=== PATIENT | male | born 1940 | race Caucasian/White ===

== ENCOUNTER 2017-08-12 12:43 | Emergency (ER) | payer MEDICARE, BC ==
--- NOTE | 2017-08-12 13:02 | EDM.PDOC ---
ED HPI GENERAL MEDICAL PROBLEM - General Chief Complaint: Abdominal Pain Stated Complaint: ABDOMINAL PAIN Time Seen by Provider: 08/12/17 12:51 Source of Information: Reports: Patient History Limitations: Reports: No Limitations - History of Present Illness INITIAL COMMENTS - FREE TEXT/NARRATIVE: History of present illness: []Patient had left-sided abdominal pain the day after Thanksgiving which he attributes to a spring breaking and as mattress. He denies any fevers, chills, nausea, vomiting diarrhea cough or chest pain. Review of systems: As per history of present illness and below otherwise all systems reviewed and negative. Past medical history: As per history of present illness and as reviewed below otherwise noncontributory. Surgical history: As per history of present illness and as reviewed below otherwise noncontributory. Social history: No reported history of drug or alcohol abuse. Family history: As per history of present illness and as reviewed below otherwise noncontributory. Physical exam: General: Well developed, well nourished in NAD HEENT: Atraumatic, normocephalic, pupils reactive, negative for conjunctival pallor or scleral icterus, mucous membranes moist, throat clear, neck supple, nontender, trachea midline. Lungs: Clear to auscultation, breath sounds equal bilaterally, chest nontender. Heart: S1S2, regular, negative for clicks, rubs, or JVD. Abdomen: Soft, nondistended, tender in the left upper quadrant along a dermatome that has erythematous rash with blisters. Negative for masses or hepatosplenomegaly. Negative for costovertebral tenderness. Pelvis: Stable nontender. Genitourinary: Deferred. Rectal: Deferred. Extremities: Atraumatic, negative for cords or calf pain. Neurovascular unremarkable. Neuro: Awake, alert, oriented. Cranial nerves II through XII unremarkable. Cerebellum unremarkable. Motor and sensory unremarkable throughout. Exam nonfocal. Skin: Large rash along his left trunk along a dermatome with erythema and blistering appearing as shingles. Diagnostics: [] Therapeutics: [] Impression: []Shingles Plan: []Acyclovir tramadol for pain follow-up primary care doctor Definitive disposition and diagnosis as appropriate pending reevaluation and review of above. - Related Data Allergies Allergy/AdvReac Type Severity Reaction Status Date / Time celecoxib [From Celebrex] Allergy Cannot Verified 08/01/14 15:08 Remember oxytetracycline Allergy Diarrhea Verified 06/03/15 12:39 [From Terramycin] oxytetracycline HCl Allergy Diarrhea Verified 06/03/15 12:39 [From Terramycin] sulfamethoxazole Allergy Headache Verified 06/03/15 12:39 [From Bactrim] trimethoprim [From Bactrim] Allergy Headache Verified 06/03/15 12:39 Home Meds: Home Meds Aspirin [Halfprin] 81 mg PO DAILY 06/03/15 [History] Clopidogrel Bisulfate [Clopidogrel] 75 mg PO DAILY 06/03/15 [History] Exenatide [Byetta] 10 mcg SUBCUT BID 06/03/15 [History] Glimepiride 4 mg PO BID 06/03/15 [History] Isosorbide Dinitrate 30 mg PO DAILY 06/03/15 [History] Losartan Potassium 100 mg PO DAILY 06/03/15 [History] Metoprolol Succinate [Toprol XL] 25 mg PO BID 06/03/15 [History] Nitroglycerin 1 spray SL ASDIRECTED PRN 06/03/15 [History] Omeprazole Magnesium [Prilosec Otc] 20 mg PO DAILY 06/03/15 [History] Promethazine HCl 25 mg PO Q3HR PRN 06/03/15 [History] Rosuvastatin [Crestor] 20 mg PO BTNUNITS 06/03/15 [History] amLODIPine [Norvasc] 5 mg PO DAILY 06/03/15 [History] metFORMIN HCl [Metformin HCl] 1,000 mg PO BID 06/03/15 [History] rOPINIRole [Requip] 1 mg PO BEDTIME PRN 06/03/15 [History] Acyclovir 800 mg PO 5XDAY #50 tablet 08/12/17 [Rx] traMADol HCl [Tramadol HCl] 50 mg PO Q6H PRN #30 tablet 08/12/17 [Rx] Past Medical History - Past Surgical History Other Male Surgeries/Procedures: vasectomy Social & Family History - Tobacco Use Smoking Status *Q: Former Smoker - Alcohol Use Days Per Week of Alcohol Use: 1 Number of Drinks Per Day: 1 Total Drinks Per Week: 1 - Recreational Drug Use Recreational Drug Use: No Drug Use in Last 12 Months: No ED ROS GENERAL - Review of Systems Review Of Systems: See Below (See history of present illness) ED EXAM, SKIN/RASH Exam: See Below (See history of present illness) Departure - Departure Time of Disposition: 13:07 Disposition: Home, Self-Care 01 Condition: Good Clinical Impression: Shingles outbreak Qualifiers: Herpes zoster complications: without complications Qualified Code(s): B02.9 - Zoster without complications - Discharge Information Prescriptions: Acyclovir 800 mg PO 5XDAY #50 tablet traMADol HCl [Tramadol HCl] 50 mg PO Q6H PRN #30 tablet PRN Reason: Pain Referrals: Anthony Miller DO [Primary Care Provider] - Forms: ED Department Discharge Additional Instructions: The following information is given to patients seen in the emergency department who are being discharged to home. This information is to outline your options for follow-up care. We provide all patients seen in our emergency department with a follow-up referral. The need for follow-up, as well as the timing and circumstances, are variable depending upon the specifics of your emergency department visit. If you don't have a primary care physician on staff, we will provide you with a referral. We always advise you to contact your personal physician following an emergency department visit to inform them of the circumstance of the visit and for follow-up with them and/or the need for any referrals to a consulting specialist. The emergency department will also refer you to a specialist when appropriate. This referral assures that you have the opportunity for follow-up care with a specialist. All of these measure are taken in an effort to provide you with optimal care, which includes your follow-up. Under all circumstances we always encourage you to contact your private physician who remains a resource for coordinating your care. When calling for follow-up care, please make the office aware that this follow-up is from your recent emergency room visit. If for any reason you are refused follow-up, please contact the [facility] Emergency Department at and asked to speak to the emergency department charge nurse. Take acyclovir 5 times a day for 10 days. Drink plenty of water. Tramadol for pain follow-up with your primary care doctor return if symptoms worsen or change [facility] Primary [facility] [place] [id number]
[2017-08-12 13:17] VITALS: BP 196/111
== END 2017-08-12 13:40 | disposition home or self-care (01) ==
LOC: MW.ED 12:43
DX: B02.9 Zoster without complications (principal); Z88.1 Allergy status to other antibiotic agents; Z88.2 Allergy status to sulfonamides; Z79.82 Long term (current) use of aspirin; Z79.899 Other long term (current) drug therapy; Z79.84 Long term (current) use of oral hypoglycemic drugs; Z87.891 Personal history of nicotine dependence
CPT/HCPCS: 99282

== ENCOUNTER 2017-08-13 11:12 | Observation (INO) | payer MEDICARE, BC ==
[2017-08-13] MEDS ORDERED: Sodium Chloride 0.9% 500 ML IV ONE (11:17)
[2017-08-13] MEDS ORDERED: Sodium Chloride 0.9% 2.5 ML Syringe FLUSH PRN (11:17)
[2017-08-13] MEDS ORDERED: Sodium Chloride 0.9% 10 ML Syringe FLUSH PRN (11:17)
[2017-08-13] MEDS ORDERED: Nitroglycerin 0.4 MG Tab.SL SL PRN (11:20)
[2017-08-13] MEDS ORDERED: Ondansetron 4 MG/2 ML SDV IVPUSH ONE (11:20)
[2017-08-13] MEDS ORDERED: Morphine 2 MG/ML Syringe IVPUSH ONE (11:20)
--- NOTE | 2017-08-13 11:21 | EDM.PDOC ---
ED HPI GENERAL MEDICAL PROBLEM - General Stated Complaint: SOB Time Seen by Provider: 08/13/17 11:15 Source of Information: Reports: Patient History Limitations: Reports: No Limitations - History of Present Illness INITIAL COMMENTS - FREE TEXT/NARRATIVE: History of present illness: []Patient was seen yesterday and diagnosed with shingles returns today with shortness of breath. Review of systems: As per history of present illness and below otherwise all systems reviewed and negative. Past medical history: As per history of present illness and as reviewed below otherwise noncontributory. Surgical history: As per history of present illness and as reviewed below otherwise noncontributory. Social history: No reported history of drug or alcohol abuse. Family history: As per history of present illness and as reviewed below otherwise noncontributory. Physical exam: General: Well developed, well nourished in NAD HEENT: Atraumatic, normocephalic, pupils reactive, negative for conjunctival pallor or scleral icterus, mucous membranes moist, throat clear, neck supple, nontender, trachea midline. Lungs: Clear to auscultation, breath sounds equal bilaterally, chest nontender. Heart: S1S2, regular, negative for clicks, rubs, or JVD. Abdomen: Soft, nondistended, nontender. Negative for masses or hepatosplenomegaly. Negative for costovertebral tenderness. Pelvis: Stable nontender. Genitourinary: Deferred. Rectal: Deferred. Extremities: Atraumatic, negative for cords or calf pain. Neurovascular unremarkable. Neuro: Awake, alert, oriented. Cranial nerves II through XII unremarkable. Cerebellum unremarkable. Motor and sensory unremarkable throughout. Exam nonfocal. Diagnostics: []Labs x-ray done Therapeutics: []Antihypertensive medications Impression: []Hypertensive urgency Plan: []Admit for blood pressure control, pain control and further treatment of acute shingles Definitive disposition and diagnosis as appropriate pending reevaluation and review of above. Left Chest Pain Score (Numeric/FACES): 4 - Related Data Allergies Allergy/AdvReac Type Severity Reaction Status Date / Time celecoxib [From Celebrex] Allergy Cannot Verified 08/13/17 11:22 Remember oxytetracycline Allergy Diarrhea Verified 08/13/17 11:22 [From Terramycin] oxytetracycline HCl Allergy Diarrhea Verified 08/13/17 11:22 [From Terramycin] sulfamethoxazole Allergy Headache Verified 08/13/17 11:22 [From Bactrim] trimethoprim [From Bactrim] Allergy Headache Verified 08/13/17 11:22 Home Meds: Home Meds Aspirin [Halfprin] 81 mg PO DAILY 06/03/15 [History] Clopidogrel Bisulfate [Clopidogrel] 75 mg PO DAILY 06/03/15 [History] Exenatide [Byetta] 10 mcg SUBCUT BID 06/03/15 [History] Glimepiride 4 mg PO BID 06/03/15 [History] Isosorbide Dinitrate 30 mg PO DAILY 06/03/15 [History] Losartan Potassium 100 mg PO DAILY 06/03/15 [History] Metoprolol Succinate [Toprol XL] 25 mg PO BID 06/03/15 [History] Nitroglycerin 1 spray SL ASDIRECTED PRN 06/03/15 [History] Omeprazole Magnesium [Prilosec Otc] 20 mg PO DAILY 06/03/15 [History] Promethazine HCl 25 mg PO Q3HR PRN 06/03/15 [History] Rosuvastatin [Crestor] 20 mg PO BTNUNITS 06/03/15 [History] amLODIPine [Norvasc] 5 mg PO DAILY 06/03/15 [History] metFORMIN HCl [Metformin HCl] 1,000 mg PO BID 06/03/15 [History] rOPINIRole [Requip] 1 mg PO BEDTIME PRN 06/03/15 [History] Acyclovir 800 mg PO 5XDAY #50 tablet 08/12/17 [Rx] traMADol HCl [Tramadol HCl] 50 mg PO Q6H PRN #30 tablet 08/12/17 [Rx] Past Medical History HEENT History: Reports: Hard of Hearing Cardiovascular History: Reports: High Cholesterol, Hypertension, Stents, Other ( See Below) Other Cardiovascular History: carotid surgery Respiratory History: Reports: Asthma Gastrointestinal History: Reports: Colon Polyp Musculoskeletal History: Reports: Arthritis Endocrine/Metabolic History: Reports: Diabetes, Type II - Infectious Disease History Infectious Disease History: Reports: Chicken Pox - Past Surgical History Cardiovascular Surgical History: Reports: Carotid Endarterectomy GI Surgical History: Reports: Colonoscopy Other Male Surgeries/Procedures: vasectomy Social & Family History - Family History Endocrine/Metabolic: Reports: Diabetes, type II Other Dermatologic [facility] - Tobacco Use Smoking Status *Q: Light Tobacco Smoker Years of Tobacco use: 10 Packs/Tins Daily: 1 Used Tobacco, but Quit: Yes Month Tobacco Last Used: 1969 Second Hand Smoke Exposure: No - Caffeine Use Caffeine Use: Reports: Coffee - Alcohol Use Days Per Week of Alcohol Use: 1 Number of Drinks Per Day: 1 Total Drinks Per Week: 1 - Recreational Drug Use Recreational Drug Use: No Drug Use in Last 12 Months: No ED ROS GENERAL - Review of Systems Review Of Systems: See Below (See history of present illness) ED EXAM, GENERAL - Physical Exam Exam: See Below (See history of present illness) Course - Vital Signs Last Recorded V/S: Last Vital Signs Temp 97.8 F 08/13/17 14:30 Pulse 72 08/13/17 14:30 Resp 18 08/13/17 14:30 BP 182/97 H 08/13/17 14:47 Pulse Ox 94 L 08/13/17 14:30 - Orders/Labs/Meds Orders: Active Orders 24 hr Category Date Time Status Admission Status [Patient Status] [ADT] Stat ADT 08/13/17 13:01 Active EKG Documentation Completion [RC] STAT Care 08/13/17 11:17 Active Chest 1V Frontal [CR] Stat Exams 08/13/17 11:18 Taken Nitroglycerin [Nitrostat] Med 08/13/17 11:20 Active 0.4 mg SL Q5M PRN Sodium Chloride 0.9% [Saline Flush] Med 08/13/17 11:17 Active 10 ml FLUSH ASDIRECTED PRN Sodium Chloride 0.9% [Saline Flush] Med 08/13/17 11:17 Active 2.5 ml FLUSH ASDIRECTED PRN Saline Lock Insert [OM.PC] Stat Oth 08/13/17 11:17 Ordered Medication Orders Acetaminophen (Tylenol) 650 mg PO Q4H PRN PRN Reason: Pain (Mild 1-3)/fever Docusate Sodium (Colace) 100 mg PO BID PRN PRN Reason: Constipation Last Admin: 08/13/17 14:48 Dose: 100 mg Heparin Sodium (Porcine) (Heparin Sodium) 5,000 units SUBCUT Q8H ANAY Last Admin: 08/13/17 14:47 Dose: 5,000 units Insulin Aspart (Novolog) 0 unit SUBCUT ACBREAKFASTANDBED ANAY PRN Reason: Protocol Morphine Sulfate (Morphine) 2 mg IVPUSH Q2H PRN PRN Reason: Pain (severe 7-10) Stop: 08/14/17 13:32 Nitroglycerin (Nitrostat) 0.4 mg SL Q5M PRN PRN Reason: Chest Pain Ondansetron HCl (Zofran Odt) 4 mg PO Q4H PRN PRN Reason: nausea, able to take PO Polyethylene Glycol (Miralax) 17 gm PO DAILY PRN PRN Reason: Constipation Sodium Chloride (Saline Flush) 10 ml FLUSH ASDIRECTED PRN PRN Reason: Keep Vein Open Sodium Chloride (Saline Flush) 2.5 ml FLUSH ASDIRECTED PRN PRN Reason: Keep Vein Open Tramadol HCl (Ultram) 50 mg PO Q4H PRN PRN Reason: Pain Valacyclovir HCl (Valtrex) 1,000 mg PO TID [facility] Last Admin: 08/13/17 14:46 Dose: 1,000 mg Labs: Laboratory Tests 08/13/17 08/13/17 Range/Units 11:33 11:33 WBC 8.69 (4.0-11.0) K/uL RBC 4.84 (4.50-5.90) M/uL Hgb 15.1 (13.0-17.0) g/dL Hct 42.1 (38.0-50.0) % MCV 87.0 (80.0-98.0) fL MCH 31.2 (27.0-32.0) pg MCHC 35.9 (31.0-37.0) g/dL RDW Std Deviation 41.2 (28.0-62.0) fl RDW Coeff of [place] 13 (11.0-15.0) % Plt Count 186 (150-400) K/uL MPV 10.70 (7.40-12.00) fL Neut % (Auto) 77.9 (48.0-80.0) % Lymph % (Auto) 11.0 L (16.0-40.0) % [place] % (Auto) 10.0 (0.0-15.0) % Eos % (Auto) 0.6 (0.0-7.0) % Baso % (Auto) 0.5 (0.0-1.5) % Neut # (Auto) 6.8 H (1.4-5.7) K/uL Lymph # (Auto) 1.0 (0.6-2.4) K/uL [place] # (Auto) 0.9 H (0.0-0.8) K/uL Eos # (Auto) 0.1 (0.0-0.7) K/uL Baso # (Auto) 0.0 (0.0-0.1) K/uL Nucleated RBC % 0.0 /100WBC Nucleated RBCs # 0 K/uL Sodium 137 (136-146) mmol/L Potassium 4.3 (3.5-5.1) mmol/L Chloride 104 (98-110) mmol/L Carbon Dioxide 23 (21-31) mmol/L BUN 18 (6.0-23.0) mg/dL Creatinine 1.0 (0.6-1.5) mg/dL Est Cr Clr Drug Dosing 56.00 mL/min Estimated GFR (MDRD) > 60.0 ml/min Glucose 168 H (60-110) mg/dL Calcium 9.4 (8.8-10.8) mg/dL Total Bilirubin 0.8 (0.1-1.5) mg/dL AST 17 (5-40) IU/L ALT 13 (8-54) IU/L Alkaline Phosphatase < 7 L (40-150) Troponin I < 0.10 (0.0-0.29) NG/ML Total Protein 7.1 (6.0-8.0) g/dL Albumin 3.7 (3.4-4.8) g/dL Globulin 3.4 (2.0-3.5) g/dL Albumin/Globulin Ratio 1.1 L (1.3-2.8) Meds: Medications Generic Name Dose Route Start Last Admin Trade Name Freq PRN Reason Stop Dose Admin Acetaminophen 650 mg 08/13/17 13:29 Tylenol PO Q4H PRN Pain (Mild 1-3)/fever Docusate Sodium 100 mg 08/13/17 13:29 08/13/17 14:48 Colace PO 100 mg BID PRN Administration Constipation Heparin Sodium (Porcine) 5,000 units 08/13/17 13:30 08/13/17 14:47 Heparin Sodium SUBCUT 5,000 units Q8H ANAY Administration Insulin Aspart 0 unit 08/13/17 21:00 Novolog SUBCUT ACBREAKFASTANDBED [facility] Protocol Morphine Sulfate 2 mg 08/13/17 13:29 Morphine IVPUSH 08/14/17 13:32 Q2H PRN Pain (severe 7-10) Nitroglycerin 0.4 mg 08/13/17 11:20 Nitrostat SL Q5M PRN Chest Pain Ondansetron HCl 4 mg 08/13/17 13:29 Zofran Odt PO Q4H PRN nausea, able to take PO Polyethylene Glycol 17 gm 08/13/17 13:29 Miralax PO DAILY PRN Constipation Sodium Chloride 10 ml 08/13/17 11:17 Saline Flush FLUSH ASDIRECTED PRN Keep Vein Open Sodium Chloride 2.5 ml 08/13/17 11:17 Saline Flush FLUSH ASDIRECTED PRN Keep Vein Open Tramadol HCl 50 mg 08/13/17 13:29 Ultram PO Q4H PRN Pain Valacyclovir HCl 1,000 mg 08/13/17 14:00 08/13/17 14:46 Valtrex PO 1,000 mg TID [facility] Administration Discontinued Medications Generic Name Dose Route Start Last Admin Trade Name Freq PRN Reason Stop Dose Admin Captopril 25 mg 08/13/17 13:29 08/13/17 14:47 Capoten PO 08/13/17 13:30 25 mg ONETIME ONE Administration Sodium Chloride 500 mls @ 999 mls/hr 08/13/17 11:17 08/13/17 11:39 Normal Saline IV 08/13/17 11:47 999 mls/hr .Bolus ONE Administration Labetalol HCl 20 mg 08/13/17 12:08 08/13/17 12:20 Normodyne IVPUSH 08/13/17 12:09 20 mg .BOLUS ONE Administration Protocol Labetalol HCl 20 mg 08/13/17 12:15 08/13/17 12:23 Normodyne IVPUSH 08/13/17 12:16 Not Given .BOLUS ONE Protocol Metoprolol Tartrate 5 mg 08/13/17 11:30 08/13/17 14:32 Lopressor IVPUSH 08/13/17 11:41 Not Given Q5M [facility] Morphine Sulfate 2 mg 08/13/17 11:20 08/13/17 11:40 Morphine IVPUSH 08/13/17 11:21 Not Given ONETIME ONE Ondansetron HCl 4 mg 08/13/17 11:20 08/13/17 11:40 Zofran IVPUSH 08/13/17 11:21 Not Given ONETIME ONE Departure - Departure Time of Disposition: 15:00 Disposition: Admitted As Inpatient 64 Condition: Good, Fair Clinical Impression: Hypertensive urgency - My Orders Last 24 Hours: My Active Orders 08/13/17 11:17 EKG Documentation Completion [RC] STAT Sodium Chloride 0.9% [Saline Flush] 10 ml FLUSH ASDIRECTED PRN Sodium Chloride 0.9% [Saline Flush] 2.5 ml FLUSH ASDIRECTED PRN Saline Lock Insert [OM.PC] Stat 08/13/17 11:18 Chest 1V Frontal [CR] Stat 08/13/17 11:20 Nitroglycerin [Nitrostat] 0.4 mg SL Q5M PRN 08/13/17 13:01 Admission Status [Patient Status] [ADT] Stat - Assessment/Plan Last 24 Hours: My Active Orders 08/13/17 11:17 EKG Documentation Completion [RC] STAT Sodium Chloride 0.9% [Saline Flush] 10 ml FLUSH ASDIRECTED PRN Sodium Chloride 0.9% [Saline Flush] 2.5 ml FLUSH ASDIRECTED PRN Saline Lock Insert [OM.PC] Stat 08/13/17 11:18 Chest 1V Frontal [CR] Stat 08/13/17 11:20 Nitroglycerin [Nitrostat] 0.4 mg SL Q5M PRN 08/13/17 13:01 Admission Status [Patient Status] [ADT] Stat
[2017-08-13] MEDS: Metoprolol Tartrate 5 MG/5 ML SDV IVPUSH SCH ×3 (11:40→14:32)
[2017-08-13 12:04] LABS: CHLORIDE,CL 104 mmol/L (98-110); SODIUM,NA 137 mmol/L (136-146)
[2017-08-13] MEDS ORDERED: Labetalol 5 MG/ML 5 ML Syringe IVPUSH ONE (12:08)
[2017-08-13] MEDS ORDERED: Labetalol 100 MG/20 ML MDV IVPUSH ONE (12:15)
--- NOTE | 2017-08-13 13:16 | PCM.HP ---
H&P History of Present Illness - General Date of Service: 08/13/17 Admit Problem/Dx: Admission Diagnosis/Problem Admission Diagnosis/Problem Hypertensive urgency Source of Information: Patient History Limitations: Reports: No Limitations - History of Present Illness Initial Comments - Free Text/Narative: 77 yo presenting to ED with chief complaint of left side and back pain found to have herpes zoster with pmh of CAD, type 2 diabetes, hypertension, and restless leg syndrome. Patient initially presented in the emergency room on 08/12/17. He was treated for herpes zoster and sent home. Patient return to emergency room today, complaining of uncontrolled pain and some shortness of breath. He has a history of coronary artery disease, hypertension, type 2 diabetes, and restless leg syndrome. Initial zoster symptoms started approximately 1 week ago. He felt left-sided pain that he initially thought was due to old rib fractures or "[place] in his bed" that may be poking him. Today he had some shortness of breath after getting out of the shower. He denies any associated chest pain, palpitations, hemoptysis, leg pain or swelling. He does have a history of asthma but states that he does not have any oral medications for this. In the past he did use a borrowed nebulizer. He currently denies any chest pain, palpitations, syncopal episodes, or focal neurologic deficits. In the emergency room CBC, CMP, and chest x-ray were unremarkable. Blood pressure was markedly elevated at 174/113. O2 sat 93% on room air. Patient was admitted for hypertensive urgency and pain control. Onset of Symptoms: Reports: Gradual Left Chest Pain Score (Numeric/FACES): 4 - Related Data Allergies/Adverse Reactions: Allergies Allergy/AdvReac Type Severity Reaction Status Date / Time celecoxib [From Celebrex] Allergy Cannot Verified 08/13/17 11:22 Remember oxytetracycline Allergy Diarrhea Verified 08/13/17 11:22 [From Terramycin] oxytetracycline HCl Allergy Diarrhea Verified 08/13/17 11:22 [From Terramycin] sulfamethoxazole Allergy Headache Verified 08/13/17 11:22 [From Bactrim] trimethoprim [From Bactrim] Allergy Headache Verified 08/13/17 11:22 Home Medications: Home Meds Aspirin [Halfprin] 81 mg PO DAILY 06/03/15 [History] Clopidogrel Bisulfate [Clopidogrel] 75 mg PO DAILY 06/03/15 [History] Exenatide [Byetta] 10 mcg SUBCUT BID 06/03/15 [History] Glimepiride 4 mg PO BID 06/03/15 [History] Isosorbide Dinitrate 30 mg PO DAILY 06/03/15 [History] Losartan Potassium 100 mg PO DAILY 06/03/15 [History] Metoprolol Succinate [Toprol XL] 25 mg PO BID 06/03/15 [History] Nitroglycerin 1 spray SL ASDIRECTED PRN 06/03/15 [History] Omeprazole Magnesium [Prilosec Otc] 20 mg PO DAILY 06/03/15 [History] Promethazine HCl 25 mg PO Q3HR PRN 06/03/15 [History] Rosuvastatin [Crestor] 20 mg PO BTNUNITS 06/03/15 [History] amLODIPine [Norvasc] 5 mg PO DAILY 06/03/15 [History] metFORMIN HCl [Metformin HCl] 1,000 mg PO BID 06/03/15 [History] rOPINIRole [Requip] 1 mg PO BEDTIME PRN 06/03/15 [History] Acyclovir 800 mg PO 5XDAY #50 tablet 08/12/17 [Rx] traMADol HCl [Tramadol HCl] 50 mg PO Q6H PRN #30 tablet 08/12/17 [Rx] Past Medical History HEENT History: Reports: Hard of Hearing Cardiovascular History: Reports: High Cholesterol, Hypertension, Stents, Other ( See Below) Other Cardiovascular History: carotid surgery Respiratory History: Reports: Asthma Gastrointestinal History: Reports: Colon Polyp Musculoskeletal History: Reports: Arthritis Endocrine/Metabolic History: Reports: Diabetes, Type II - Infectious Disease History Infectious Disease History: Reports: Chicken Pox - Past Surgical History Cardiovascular Surgical History: Reports: Carotid Endarterectomy GI Surgical History: Reports: Colonoscopy Other Male Surgeries/Procedures: vasectomy Social & Family History - Family History Family Medical History: Noncontributory Endocrine/Metabolic: Reports: Diabetes, type II Other Dermatologic Family History: states niecehadshingles - Tobacco Use Smoking Status *Q: Light Tobacco Smoker Years of Tobacco use: 10 Packs/Tins Daily: 1 Used Tobacco, but Quit: Yes Month Tobacco Last Used: 1969 Second Hand Smoke Exposure: No - Caffeine Use Caffeine Use: Reports: Coffee - Alcohol Use Days Per Week of Alcohol Use: 1 Number of Drinks Per Day: 1 Total Drinks Per Week: 1 - Recreational Drug Use Recreational Drug Use: No Drug Use in Last 12 Months: No H&P Review of Systems - Review of Systems: Review Of Systems: See Below General: Denies: Fever, Chills, Malaise, Weakness, Fatigue, Night Sweats HEENT: Denies: Dysphasia, Sinus Congestion, Sore Throat Pulmonary: Reports: Shortness of Breath. Denies: Wheezing, Pleuritic Chest Pain , Cough, Sputum, Hemoptysis Cardiovascular: Reports: Edema. Denies: Chest Pain, Palpitations, Syncope Gastrointestinal: Denies: Abdominal Pain, Black Stool, Bloody Stool, Diarrhea, Flatus, Nausea, Vomiting Genitourinary: Denies: Dysuria Musculoskeletal: Reports: Other (back and left sided chest pain from zoster). Denies: Neck Pain, Leg Pain Skin: Reports: Rash, Erythema (zoster) Exam - Exam Exam: See Below - Vital Signs Vital Signs: Last Vital Signs Temp 97.0 F 08/13/17 11:19 Pulse 67 08/13/17 12:20 Resp 12 08/13/17 11:46 BP 174/113 H 08/13/17 12:20 Pulse Ox 96 08/13/17 11:46 Weight: 97.9 kg - Exam Quality Assessment: Supplemental Oxygen, DVT Prophylaxis General: Alert, Oriented, Cooperative HEENT: Conjunctiva Clear, EACs Clear, EOMI, Hearing Intact, Mucosa Moist & [place] , Nares Patent, Normal Nasal Septum, Posterior Pharynx Clear, PERRLA Neck: Supple, Trachea Midline, 2 Lungs: Clear to Auscultation, Normal Respiratory Effort Cardiovascular: Regular Rate, Regular Rhythm, Normal S1, Normal S2, Systolic Murmur GI/Abdominal Exam: Normal Bowel Sounds, Soft, Non-Tender, No Organomegaly, No Distention Back Exam: Normal Inspection Extremities: Normal Inspection, Non-Tender, Normal Capillary Refill, Pedal Edema Peripheral Pulses: 2+: Radial (L), Radial (R), Posterior Tibial (L), Posterior Tibial (R), Dorsalis Pedis (L), Dorsalis Pedis (R) Skin: Rash (Vesicular rash with surrounding erythema extending on left side below ribs from center of chest to mid back. ) Neurological: Cranial Nerves Intact Neuro Extensive - Mental Status: Alert, Oriented x3, Normal Mood/Affect, Normal Cognition Neuro Extensive - Motor, Sensory, Reflexes: CN II-XII Intact Psychiatric: Alert, Normal Affect, Normal Mood - Patient Data Lab Results Last 24 hrs: Laboratory Results - last 24 hr 08/13/17 08/13/17 Range/Units 11:33 11:33 WBC 8.69 (4.0-11.0) K/uL RBC 4.84 (4.50-5.90) M/uL Hgb 15.1 (13.0-17.0) g/dL Hct 42.1 (38.0-50.0) % MCV 87.0 (80.0-98.0) fL MCH 31.2 (27.0-32.0) pg MCHC 35.9 (31.0-37.0) g/dL RDW Std Deviation 41.2 (28.0-62.0) fl RDW Coeff of [place] 13 (11.0-15.0) % Plt Count 186 (150-400) K/uL MPV 10.70 (7.40-12.00) fL Neut % (Auto) 77.9 (48.0-80.0) % Lymph % (Auto) 11.0 L (16.0-40.0) % [place] % (Auto) 10.0 (0.0-15.0) % Eos % (Auto) 0.6 (0.0-7.0) % Baso % (Auto) 0.5 (0.0-1.5) % Neut # (Auto) 6.8 H (1.4-5.7) K/uL Lymph # (Auto) 1.0 (0.6-2.4) K/uL [place] # (Auto) 0.9 H (0.0-0.8) K/uL Eos # (Auto) 0.1 (0.0-0.7) K/uL Baso # (Auto) 0.0 (0.0-0.1) K/uL Nucleated RBC % 0.0 /100WBC Nucleated RBCs # 0 K/uL Sodium 137 (136-146) mmol/L Potassium 4.3 (3.5-5.1) mmol/L Chloride 104 (98-110) mmol/L Carbon Dioxide 23 (21-31) mmol/L BUN 18 (6.0-23.0) mg/dL Creatinine 1.0 (0.6-1.5) mg/dL Est Cr Clr Drug Dosing 56.00 mL/min Estimated GFR (MDRD) > 60.0 ml/min Glucose 168 H (60-110) mg/dL Calcium 9.4 (8.8-10.8) mg/dL Total Bilirubin 0.8 (0.1-1.5) mg/dL AST 17 (5-40) IU/L ALT 13 (8-54) IU/L Alkaline Phosphatase < 7 L (40-150) Troponin I < 0.10 (0.0-0.29) NG/ML Total Protein 7.1 (6.0-8.0) g/dL Albumin 3.7 (3.4-4.8) g/dL Globulin 3.4 (2.0-3.5) g/dL Albumin/Globulin Ratio 1.1 L (1.3-2.8) Result Diagrams: 08/13/17 11:33 08/13/17 11:33 *Q Meaningful Use (ADM) - VTE *Q VTE Criteria *Q: - Stroke *Q Stroke Criteria *Q: - AMI *Q AMI Criteria *Q: - Problem List (1) Asymptomatic hypertensive urgency SNOMED Code(s): 618946067 ICD Code: I16.0 - HYPERTENSIVE URGENCY Status: Acute Priority: High Current Visit: Yes (2) Herpes zoster dermatitis SNOMED Code(s): 790700889 ICD Code: B02.8 - ZOSTER WITH OTHER COMPLICATIONS; L30.8 - OTHER SPECIFIED DERMATITIS Status: Acute Priority: High Current Visit: Yes (3) Type 2 diabetes mellitus SNOMED Code(s): 44577130 ICD Code: E11.9 - TYPE 2 DIABETES MELLITUS WITHOUT COMPLICATIONS Status: Chronic Priority: Medium Current Visit: Yes Qualifiers: Diabetes mellitus complication status: without complication Diabetes mellitus usp insulin use: without intermodal dispatcher use Qualified Code(s): E11.9 - Type 2 diabetes mellitus without complications (4) Coronary artery disease SNOMED Code(s): 40274914 ICD Code: I25.10 - ATHSCL HEART DISEASE OF [place] CORONARY ARTERY W/O ANG PCTRS Status: Chronic Priority: Medium Current Visit: Yes Qualifiers: Coronary Disease-Associated Artery/Lesion type: unspecified vessel or lesion type [place] vs. transplanted heart: [place] heart Associated angina: without angina Qualified Code(s): I25.10 - Atherosclerotic heart disease of [place] coronary artery without angina pectoris (5) Hypertension SNOMED Code(s): 76646960 ICD Code: I10 - ESSENTIAL (PRIMARY) HYPERTENSION Status: Chronic Priority : Medium Current Visit: Yes Qualifiers: Hypertension type: essential hypertension Qualified Code(s): I10 - Essential (primary) hypertension (6) Restless legs syndrome SNOMED Code(s): 85585071 ICD Code: G25.81 - RESTLESS LEGS SYNDROME Status: Chronic Priority: Low Current Visit: Yes Problem List Initiated/Reviewed/Updated: Yes Orders Last 24hrs: Active Orders 24 hr Category Date Time Status Admission Status [Patient Status] [ADT] Stat ADT 08/13/17 13:01 Active EKG Documentation Completion [RC] STAT Care 08/13/17 11:17 Active Chest 1V Frontal [CR] Stat Exams 08/13/17 11:18 Taken Nitroglycerin [Nitrostat] Med 08/13/17 11:20 Active 0.4 mg SL Q5M PRN Sodium Chloride 0.9% [Saline Flush] Med 08/13/17 11:17 Active 10 ml FLUSH ASDIRECTED PRN Sodium Chloride 0.9% [Saline Flush] Med 08/13/17 11:17 Active 2.5 ml FLUSH ASDIRECTED PRN Saline Lock Insert [OM.PC] Stat Oth 08/13/17 11:17 Ordered Medication Orders Nitroglycerin (Nitrostat) 0.4 mg SL Q5M PRN PRN Reason: Chest Pain Sodium Chloride (Saline Flush) 10 ml FLUSH ASDIRECTED PRN PRN Reason: Keep Vein Open Sodium Chloride (Saline Flush) 2.5 ml FLUSH ASDIRECTED PRN PRN Reason: Keep Vein Open Assessment/Plan Comment:: 77-year-old male admitted hypertensive urgency and pain control secondary to herpes zoster dermatitis with PMH of CAD, type 2 diabetes, hypertension, and restless leg syndrome. Hypertensive urgency: Most likely secondary to pain and volume depletion. IV morphine 2 mg every 2 hours, tramadol 50 mg, acetaminophen. IV normal saline bolus 500 mL. Herpes zoster dermatitis: Greater than 72 hours since first symptoms but still having vesicular formation. We'll treat with valacyclovir 1000 mg 3 times a day 7 days. CAD: Stable continue home meds Type 2 diabetes: We'll get hemoglobin A1c and place on low-dose insulin sliding scale Hypertension: Currently hypertensive urgency see above we'll restart home meds in addition to urgent treatment. Restless leg syndrome: Stable restart home meds VTE prophylaxis: Heparin subcutaneous, CD Disposition: 1-2 days.
[2017-08-13] MEDS ORDERED: Docusate Sodium 100 MG Cap PO PRN (13:29)
[2017-08-13] MEDS ORDERED: Polyethylene Glycol 3350 Powder 17 GM Packet PO PRN (13:29)
[2017-08-13] MEDS ORDERED: Ondansetron 4 MG Tab.DIS PO PRN (13:29)
[2017-08-13] MEDS ORDERED: Acetaminophen 325 MG Tab PO PRN (13:29)
[2017-08-13] MEDS ORDERED: Morphine 10 MG/ML Syringe IVPUSH PRN (13:29)
[2017-08-13] MEDS: valACYclovir 500 MG Tab PO SCH ×2 (14:46→21:39)
[2017-08-13] MEDS: Heparin Sodium 5,000 Units/ML Vial SUBCUT SCH ×2 (14:47→21:39)
[2017-08-13] MEDS ORDERED: FLU Vacc QS 2017-18 (36mos UP)/PF 60 MCG/0.5 ML Syringe IM ONE (15:30)
[2017-08-13] MEDS: traMADol 50 MG Tab PO PRN (17:11)
[2017-08-13] MEDS: Insulin Aspart 100 Units/ML 3 ML Pen SUBCUT SCH ×2 (18:16→21:40)
[2017-08-13] MEDS ORDERED: Insulin Aspart 100 Units/ML 3 ML Pen SUBCUT SCH (21:00)
[2017-08-14] MEDS: traMADol 50 MG Tab PO PRN (02:45)
[2017-08-14] MEDS: valACYclovir 500 MG Tab PO SCH (06:11)
[2017-08-14] MEDS: Heparin Sodium 5,000 Units/ML Vial SUBCUT SCH (06:12)
[2017-08-14 06:23] LABS: CHLORIDE,CL 106 mmol/L (98-110); SODIUM,NA 138 mmol/L (136-146)
[2017-08-14] MEDS: Insulin Aspart 100 Units/ML 3 ML Pen SUBCUT SCH (06:36)
[2017-08-14] MEDS ORDERED: rOPINIRole 1 MG Tab PO PRN (07:57)
[2017-08-14] MEDS ORDERED: Omeprazole 20 MG Cap.CR PO SCH (08:00)
[2017-08-14] MEDS ORDERED: Metoprolol Succinate 25 MG Tab.ER PO SCH (08:00)
[2017-08-14] MEDS ORDERED: Clopidogrel 75 MG Tab PO SCH (09:00)
[2017-08-14] MEDS ORDERED: Losartan 50 MG Tab PO SCH (09:00)
[2017-08-14] MEDS ORDERED: Isosorbide Mononitrate 30 MG Tab.ER PO SCH ×2 (09:00→09:45)
[2017-08-14] MEDS ORDERED: Aspirin 81 MG Tab.EC PO SCH (09:00)
[2017-08-14] MEDS ORDERED: amLODIPine 5 MG Tab PO SCH (09:00)
[2017-08-14 09:06] VITALS: BP 134/79
[2017-08-14] MEDS ORDERED: Furosemide 20 MG Tab PO SCH (09:45)
--- NOTE | 2017-08-14 10:22 | PCM.DCSUM1 ---
Discharge Summary - Hospital Course Brief History: 77 yo presenting to ED with chief complaint of left side and back pain found to have herpes zoster with pmh of CAD, type 2 diabetes, hypertension, and restless leg syndrome. Patient initially presented in the emergency room on 08/12/17. He was treated for herpes zoster and sent home. Patient return to emergency room today, 08/13/17 complaining of uncontrolled pain and some shortness of breath. He has a history of coronary artery disease, hypertension, type 2 diabetes, and restless leg syndrome. Initial zoster symptoms started approximately 1 week ago. He felt left-sided pain that he initially thought was due to old rib fractures or "[place] in his bed" that may be poking him. Today he had some shortness of breath after getting out of the shower. He denies any associated chest pain, palpitations, hemoptysis, leg pain or swelling. He does have a history of asthma but states that he does not have any oral medications for this. In the past he did use a borrowed nebulizer. He currently denies any chest pain, palpitations, syncopal episodes, or focal neurologic deficits. In the emergency room CBC, CMP, and chest x-ray were unremarkable. Blood pressure was markedly elevated at 174/113. O2 sat 93% on room air. Patient was admitted for hypertensive urgency and pain control. - Discharge Data Discharge Date: 08/14/17 Discharge Disposition: Home, Self-Care 01 Condition: Good - Discharge Diagnosis/Problem(s) (1) Herpes zoster dermatitis SNOMED Code(s): 236833449 ICD Code: B02.8 - ZOSTER WITH OTHER COMPLICATIONS; L30.8 - OTHER SPECIFIED DERMATITIS Status: Acute Priority: High (2) Hypertensive urgency SNOMED Code(s): 112524210 ICD Code: I16.0 - HYPERTENSIVE URGENCY Status: Resolved (3) Coronary artery disease SNOMED Code(s): 98187074 ICD Code: I25.10 - ATHSCL HEART DISEASE OF [place] CORONARY ARTERY W/O ANG PCTRS Status: Chronic Priority: Medium Qualifiers: Coronary Disease-Associated Artery/Lesion type: unspecified vessel or lesion type [place] vs. transplanted heart: [place] heart Associated angina: without angina Qualified Code(s): I25.10 - Atherosclerotic heart disease of [place] coronary artery without angina pectoris (4) Hypertension SNOMED Code(s): 15024998 ICD Code: I10 - ESSENTIAL (PRIMARY) HYPERTENSION Status: Chronic Priority : Medium Qualifiers: Hypertension type: essential hypertension Qualified Code(s): I10 - Essential (primary) hypertension (5) Restless legs syndrome SNOMED Code(s): 94716323 ICD Code: G25.81 - RESTLESS LEGS SYNDROME Status: Chronic Priority: Low (6) Type 2 diabetes mellitus SNOMED Code(s): 27099914 ICD Code: E11.9 - TYPE 2 DIABETES MELLITUS WITHOUT COMPLICATIONS Status: Chronic Priority: Medium Qualifiers: Diabetes mellitus complication status: without complication Diabetes mellitus custodial insulin use: without long term care social worker use Qualified Code(s): E11.9 - Type 2 diabetes mellitus without complications - Patient Instructions Diet: Heart Healthy Diet, Diabetic Diet Activity: As Tolerated, No Strenuous Activities, Rest and Relax Today Showering/Bathing: May Shower Notify Provider of: Fever, Increased Pain, Swelling and Redness, Drainage, Nausea and/or Vomiting - Discharge Plan Prescriptions/Med Rec: traMADol [Ultram] 50 mg PO Q4H PRN #15 tablet PRN Reason: Pain valACYclovir [Valtrex] 1,000 mg PO TID #36 tablet Home Medications: Home Meds Aspirin [Halfprin] 81 mg PO DAILY 06/03/15 [History] Clopidogrel Bisulfate [Clopidogrel] 75 mg PO DAILY 06/03/15 [History] Exenatide [Byetta] 10 mcg SUBCUT BID 06/03/15 [History] Glimepiride 4 mg PO BID 06/03/15 [History] Losartan Potassium 100 mg PO DAILY 06/03/15 [History] Metoprolol Succinate [Toprol XL] 25 mg PO BID 06/03/15 [History] Nitroglycerin 1 spray SL ASDIRECTED PRN 06/03/15 [History] Omeprazole Magnesium [Prilosec Otc] 20 mg PO DAILY 06/03/15 [History] Promethazine HCl 25 mg PO Q3HR PRN 06/03/15 [History] Rosuvastatin [Crestor] 20 mg PO DAILY 06/03/15 [History] amLODIPine [Norvasc] 5 mg PO DAILY 06/03/15 [History] metFORMIN HCl [Metformin HCl] 1,000 mg PO BID 06/03/15 [History] rOPINIRole [Requip] 1 mg PO BEDTIME PRN 06/03/15 [History] Acetaminophen [Tylenol] 650 mg PO Q4H PRN tablet 08/14/17 [Rx] Docusate Sodium [Colace] 100 mg PO BID PRN cap 08/14/17 [Rx] Furosemide 20 mg PO Q48H 08/14/17 [History] Isosorbide Mononitrate [Isosorbide Mononitrate ER] 30 mg PO DAILY 08/14/17 [ History] traMADol [Ultram] 50 mg PO Q4H PRN #15 tablet 08/14/17 [Rx] valACYclovir [Valtrex] 1,000 mg PO TID #36 tablet 08/14/17 [Rx] Patient Handouts: Valacyclovir caplets, Tramadol tablets Referrals: Anthony Miller DO [Physician] - 08/21/17 11:30 am - Discharge Summary/Plan Comment DC Time >30 min.: No Discharge Summary/Plan Comment: Discharge Diagnoses: L flank herpes zoster HTN CAD DM type 2 Restless leg syndrome [place] was admitted and monitored overnight. Pain controlled with Tramadol and BP decreased today to 140/80s. He was restarted on home HTN regimen. Elevated BP likely secondary to pain response. He reports feeling a lot better this morning and is requesting discharge home. He reports pain to L flank is better. It hurts to lay on his side, but otherwise he is doing well. He will be discharged home with Tramadol 50 mg ever 4-6 hours as needed for pain #15 no refills and Valacyclovir 1000 mg TID for 6 more days. He is to follow up in clinic with PCP in 1 week. Educated on precautions. He is to return to ED or clinic if concerns should arise. - General Info Date of Service: 08/14/17 Admission Dx/Problem (Free Text: Admission Diagnosis/Problem Admission Diagnosis/Problem Hypertensive urgency Subjective Update: Reports doing well this morning, no chest pain or SOB. No palpitations. Some pain to L flank. Functional Status: Reports: Pain Controlled, Tolerating Diet, Ambulating, Urinating - Review of Systems General: Reports: No Symptoms. Denies: Fever HEENT: Reports: No Symptoms. Denies: Sore Throat Pulmonary: Reports: No Symptoms. Denies: Shortness of Breath Cardiovascular: Reports: No Symptoms. Denies: Chest Pain, Dyspnea on Exertion, Edema Gastrointestinal: Reports: No Symptoms. Denies: Abdominal Pain, Nausea, Vomiting Genitourinary: Reports: No Symptoms. Denies: Dysuria, Frequency, Burning Musculoskeletal: Reports: No Symptoms. Denies: Neck Pain Neurological: Reports: No Symptoms. Denies: Confusion Psychiatric: Reports: No Symptoms. Denies: Confusion - Patient Data Vitals - Most Recent: Last Vital Signs Temp 97.4 F 08/14/17 08:00 Pulse 90 08/14/17 09:04 Resp 20 08/14/17 08:00 BP 134/79 08/14/17 09:05 Pulse Ox 90 L 08/14/17 08:00 Weight - Most Recent: 91.3 kg I&O - Last 24 hours: Intake & Output 08/13/17 08/14/17 08/14/17 22:59 06:59 14:59 Intake Total 218 775 Output Total 700 Balance -482 775 Lab Results - Last 24 hrs: Laboratory Results - last 24 hr 08/13/17 08/13/17 08/14/17 Range/Units 17:03 21:26 05:50 WBC 8.84 (4.0-11.0) K/uL RBC 4.85 (4.50-5.90) M/uL Hgb 14.8 (13.0-17.0) g/dL Hct 42.4 (38.0-50.0) % MCV 87.4 (80.0-98.0) fL MCH 30.5 (27.0-32.0) pg MCHC 34.9 (31.0-37.0) g/dL RDW Std Deviation 41.7 (28.0-62.0) fl RDW Coeff of [place] 13 (11.0-15.0) % Plt Count 180 (150-400) K/uL MPV 10.40 (7.40-12.00) fL Neut % (Auto) 75.4 (48.0-80.0) % Lymph % (Auto) 11.4 L (16.0-40.0) % [place] % (Auto) 12.8 (0.0-15.0) % Eos % (Auto) 0.2 (0.0-7.0) % Baso % (Auto) 0.2 (0.0-1.5) % Neut # (Auto) 6.7 H (1.4-5.7) K/uL Lymph # (Auto) 1.0 (0.6-2.4) K/uL [place] # (Auto) 1.1 H (0.0-0.8) K/uL Eos # (Auto) 0.0 (0.0-0.7) K/uL Baso # (Auto) 0.0 (0.0-0.1) K/uL Nucleated RBC % 0.0 /100WBC Nucleated RBCs # 0 K/uL Sodium (136-146) mmol/L Potassium (3.5-5.1) mmol/L Chloride (98-110) mmol/L Carbon Dioxide (21-31) mmol/L BUN (6.0-23.0) mg/dL Creatinine (0.6-1.5) mg/dL Est Cr Clr Drug Dosing mL/min Estimated GFR (MDRD) ml/min Glucose (60-110) mg/dL POC Glucose 168 H 134 H (60-110) mg/dL Calcium (8.8-10.8) mg/dL 08/14/17 08/14/17 Range/Units 05:50 06:09 WBC (4.0-11.0) K/uL RBC (4.50-5.90) M/uL Hgb (13.0-17.0) g/dL Hct (38.0-50.0) % MCV (80.0-98.0) fL MCH (27.0-32.0) pg MCHC (31.0-37.0) g/dL RDW Std Deviation (28.0-62.0) fl RDW Coeff of [place] (11.0-15.0) % Plt Count (150-400) K/uL MPV (7.40-12.00) fL Neut % (Auto) (48.0-80.0) % Lymph % (Auto) (16.0-40.0) % [place] % (Auto) (0.0-15.0) % Eos % (Auto) (0.0-7.0) % Baso % (Auto) (0.0-1.5) % Neut # (Auto) (1.4-5.7) K/uL Lymph # (Auto) (0.6-2.4) K/uL [place] # (Auto) (0.0-0.8) K/uL Eos # (Auto) (0.0-0.7) K/uL Baso # (Auto) (0.0-0.1) K/uL Nucleated RBC % /100WBC Nucleated RBCs # K/uL Sodium 138 (136-146) mmol/L Potassium 3.9 (3.5-5.1) mmol/L Chloride 106 (98-110) mmol/L Carbon Dioxide 23 (21-31) mmol/L BUN 16 (6.0-23.0) mg/dL Creatinine 0.9 (0.6-1.5) mg/dL Est Cr Clr Drug Dosing 62.22 mL/min Estimated GFR (MDRD) > 60.0 ml/min Glucose 144 H (60-110) mg/dL POC Glucose 129 H (60-110) mg/dL Calcium 8.9 (8.8-10.8) mg/dL Med Orders - Current: Current Medications Acetaminophen (Tylenol) 650 mg PO Q4H PRN PRN Reason: Pain (Mild 1-3)/fever Amlodipine Besylate (Norvasc) 5 mg PO DAILY [facility] Last Admin: 08/14/17 09:05 Dose: 5 mg Aspirin (Halfprin) 81 mg PO DAILY [facility] Last Admin: 08/14/17 09:03 Dose: 81 mg Clopidogrel Bisulfate (Plavix) 75 mg PO DAILY [facility] Last Admin: 08/14/17 09:03 Dose: 75 mg Docusate Sodium (Colace) 100 mg PO BID PRN PRN Reason: Constipation Last Admin: 08/13/17 14:48 Dose: 100 mg Furosemide (Lasix) 20 mg PO Q48H [facility] Heparin Sodium (Porcine) (Heparin Sodium) 5,000 units SUBCUT Q8H [facility] Last Admin: 08/14/17 06:12 Dose: 5,000 units Insulin Aspart (Novolog) 0 unit SUBCUT ACBED [facility] PRN Reason: Protocol Last Admin: 08/14/17 06:36 Dose: Not Given Isosorbide Mononitrate (Imdur) 30 mg PO DAILY [facility] Last Admin: 08/14/17 09:04 Dose: 30 mg Losartan Potassium (Cozaar) 100 mg PO DAILY [facility] Last Admin: 08/14/17 09:05 Dose: 100 mg Metoprolol Succinate (Toprol Xl) 25 mg PO BIDMEALS [facility] Last Admin: 08/14/17 09:04 Dose: 25 mg Morphine Sulfate (Morphine) 2 mg IVPUSH Q2H PRN PRN Reason: Pain (severe 7-10) Stop: 08/14/17 13:32 Nitroglycerin (Nitrostat) 0.4 mg SL Q5M PRN PRN Reason: Chest Pain Omeprazole (Omeprazole) 20 mg PO ACBREAKFAST [facility] Last Admin: 08/14/17 09:04 Dose: 20 mg Ondansetron HCl (Zofran Odt) 4 mg PO Q4H PRN PRN Reason: nausea, able to take PO Polyethylene Glycol (Miralax) 17 gm PO DAILY PRN PRN Reason: Constipation Ropinirole HCl (Requip) 1 mg PO BEDTIME PRN PRN Reason: restless legs Rosuvastatin Calcium (Crestor) 20 mg PO BEDTIME [facility] Sodium Chloride (Saline Flush) 10 ml FLUSH ASDIRECTED PRN PRN Reason: Keep Vein Open Sodium Chloride (Saline Flush) 2.5 ml FLUSH ASDIRECTED PRN PRN Reason: Keep Vein Open Tramadol HCl (Ultram) 50 mg PO Q4H PRN PRN Reason: Pain Last Admin: 08/14/17 02:45 Dose: 50 mg Valacyclovir HCl (Valtrex) 1,000 mg PO TID [facility] Last Admin: 08/14/17 06:11 Dose: 1,000 mg Discontinued Medications Captopril (Capoten) 25 mg PO ONETIME ONE Stop: 08/13/17 13:30 Last Admin: 08/13/17 14:47 Dose: 25 mg Sodium Chloride (Normal Saline) 500 mls @ 999 mls/hr IV .Bolus ONE Stop: 08/13/17 11:47 Last Admin: 08/13/17 11:39 Dose: 999 mls/hr Influenza Virus Vaccine (Pharmacy To Dose - Influenza Vaccine) 1 each IM ONETIME ONE Stop: 08/13/17 15:04 Influenza Virus Vaccine (Fluarix Quad 1400-1141) 60 mcg IM .ONCE ONE Stop: 08/13/17 15:31 Insulin Aspart (Novolog) 0 unit SUBCUT ACBED [facility] PRN Reason: Protocol Isosorbide Mononitrate (Imdur) 30 mg PO DAILY [facility] Labetalol HCl (Normodyne) 20 mg IVPUSH .BOLUS ONE PRN Reason: Protocol Stop: 08/13/17 12:09 Last Admin: 08/13/17 12:20 Dose: 20 mg Labetalol HCl (Normodyne) 20 mg IVPUSH .BOLUS ONE PRN Reason: Protocol Stop: 08/13/17 12:16 Last Admin: 08/13/17 12:23 Dose: Not Given Metoprolol Tartrate (Lopressor) 5 mg IVPUSH Q5M ANAY Stop: 08/13/17 11:41 Last Admin: 08/13/17 14:32 Dose: Not Given Morphine Sulfate (Morphine) 2 mg IVPUSH ONETIME ONE Stop: 08/13/17 11:21 Last Admin: 08/13/17 11:40 Dose: Not Given Ondansetron HCl (Zofran) 4 mg IVPUSH ONETIME ONE Stop: 08/13/17 11:21 Last Admin: 08/13/17 11:40 Dose: Not Given - Exam General: Reports: Alert, Oriented, Cooperative, No Acute Distress Neck: Reports: Supple Lungs: Reports: Clear to Auscultation, Normal Respiratory Effort Cardiovascular: Reports: Regular Rate, Regular Rhythm GI/Abdominal Exam: Normal Bowel Sounds, Soft, Non-Tender, No Organomegaly, No Distention, No Abnormal Bruit, No Mass, Pelvis Stable Back Exam: Reports: Normal Inspection, Full Range of Motion Extremities: Normal Inspection, Normal Range of Motion, Non-Tender, No Pedal Edema, Normal Capillary Refill Wound/Incisions: Reports: Erythema (with vesicles noted wrapping around L flank to mid back and to from abdomen and lower chest. No secondary infectionnoted. No crusting, intact vesicles. ) Neurological: Reports: No New Focal Deficit Psy/Mental Status: Reports: Alert, Normal Affect, Normal Mood *Q Meaningful Use (DIS) - VTE *Q VTE Criteria *Q: - Stroke *Q Stroke Criteria *Q: - AMI *Q AMI Criteria *Q:
--- NOTE | 2017-08-14 15:48 | CR ---
EXAM DATE: 08/13/17 PATIENT'S AGE: 77 Patient: [facility] Facility: [place], [place] Site . Site : [id number] Study: XRay Chest [id number]/3/2017 12:04:21 PM Ordering Physician: Bautista Hoyos Final Report: INDICATION: Pain and shortness of breath TECHNIQUE: Chest 1 view. COMPARISON: None FINDINGS: Cardiovascular and mediastinum: Heart size and vasculature are normal in caliber and appearance. Mediastinum is within normal limits. Lungs and pleural space: Lungs are clear. No sign of infiltrate or mass. No sign of pleural effusion. No pneumothorax. Bones and soft tissues: No significant findings. IMPRESSION: Unremarkable chest. Dictated by: Ibrahima Alan MD @ 08/13/2017 12:32:49 (Electronic Signature) Report Signed by Proxy. [facility] HOSPITALShirley
[2017-08-14] MEDS ORDERED: Rosuvastatin 10 MG Tab PO SCH (21:00)
== END 2017-08-14 11:45 | disposition home or self-care (01) ==
LOC: MW.ED 11:12 → MW.MS 13:13 → INTOOBSV 13:13
PROVIDERS: ADMIT Family Medicine; ATTEND Family Medicine
DX: I16.0 Hypertensive urgency (principal); B02.8 Zoster with other complications; L30.8 Other specified dermatitis; E11.9 Type 2 diabetes mellitus without complications; I10 Essential (primary) hypertension; G25.81 Restless legs syndrome; I25.10 Atherosclerotic heart disease of native coronary artery without angina pectoris; R60.9 Edema, unspecified; M19.90 Unspecified osteoarthritis, unspecified site; E78.00 Pure hypercholesterolemia, unspecified; Z87.891 Personal history of nicotine dependence; Z86.010 Personal history of colon polyps; Z88.6 Allergy status to analgesic agent; Z88.2 Allergy status to sulfonamides; Z88.1 Allergy status to other antibiotic agents; Z79.82 Long term (current) use of aspirin; Z79.01 Long term (current) use of anticoagulants; Z79.84 Long term (current) use of oral hypoglycemic drugs; Z79.899 Other long term (current) drug therapy; Z95.5 Presence of coronary angioplasty implant and graft; Z98.890 Other specified postprocedural states
CPT/HCPCS: 36415; 71010; 80048; 80053; 82962; 84484; 85025; 93005; 96374; 96375; 99285; A9270; J1644; J1815; J7040; 96372; G0378

== ENCOUNTER 2017-09-01 09:02 | Emergency (ER) | payer MEDICARE, BC ==
[2017-09-01 09:14] VITALS: BP 169/120
--- NOTE | 2017-09-01 09:32 | EDM.PDOC ---
ED HPI GENERAL MEDICAL PROBLEM - General Chief Complaint: Skin Complaint Stated Complaint: SHINGLES Time Seen by Provider: 09/01/17 09:29 - History of Present Illness INITIAL COMMENTS - FREE TEXT/NARRATIVE: HISTORY AND PHYSICAL: History of present illness: Patient is 77-year-old male presents with a concern of pruritus related to his shingles he struggled this problem off and on for years as a chronic problem he states he is currently without a primary medical doctor due to loss of local physician he is pursuing establishing a new relationship is no fever chills nausea or other complaints Review of systems: As per history of present illness and below otherwise all systems reviewed and negative. Past medical history: As per history of present illness and as reviewed below otherwise noncontributory. Surgical history: As per history of present illness and as reviewed below otherwise noncontributory. Social history: No reported history of drug or alcohol abuse. Family history: As per history of present illness and as reviewed below otherwise noncontributory. Physical exam: HEENT: Atraumatic, normocephalic, pupils reactive, negative for conjunctival pallor or scleral icterus, mucous membranes moist, throat clear, neck supple, nontender, trachea midline. Lungs: Clear to auscultation, breath sounds equal bilaterally, chest nontender. Heart: S1S2, regular, negative for clicks, rubs, or JVD. Abdomen: Soft, nondistended, nontender. Negative for masses or hepatosplenomegaly. Negative for costovertebral tenderness. Pelvis: Stable nontender. Genitourinary: Deferred. Rectal: Deferred. Extremities: Atraumatic, negative for cords or calf pain. Neurovascular unremarkable. Neuro: Awake, alert, oriented. Cranial nerves II through XII unremarkable. Cerebellum unremarkable. Motor and sensory unremarkable throughout. Exam nonfocal. Skin: Patient is a scarring from recent herpes zoster infection abdominothoracic region Diagnostics: None Therapeutics: None Impression: #1 pruritus related to resolving zoster Definitive disposition and diagnosis as appropriate pending reevaluation and review of above. - Related Data Allergies Allergy/AdvReac Type Severity Reaction Status Date / Time celecoxib [From Celebrex] Allergy Cannot Verified 09/01/17 09:10 Remember oxytetracycline Allergy Diarrhea Verified 09/01/17 09:10 [From Terramycin] oxytetracycline HCl Allergy Diarrhea Verified 09/01/17 09:10 [From Terramycin] sulfamethoxazole Allergy Headache Verified 09/01/17 09:10 [From Bactrim] trimethoprim [From Bactrim] Allergy Headache Verified 09/01/17 09:10 Home Meds: Home Meds Aspirin [Halfprin] 81 mg PO DAILY 06/03/15 [History] Clopidogrel Bisulfate [Clopidogrel] 75 mg PO DAILY 06/03/15 [History] Exenatide [Byetta] 10 mcg SUBCUT BID 06/03/15 [History] Glimepiride 4 mg PO BID 06/03/15 [History] Losartan Potassium 100 mg PO DAILY 06/03/15 [History] Metoprolol Succinate [Toprol XL] 25 mg PO BID 06/03/15 [History] Nitroglycerin 1 spray SL ASDIRECTED PRN 06/03/15 [History] Omeprazole Magnesium [Prilosec Otc] 20 mg PO DAILY 06/03/15 [History] Promethazine HCl 25 mg PO Q3HR PRN 06/03/15 [History] Rosuvastatin [Crestor] 20 mg PO DAILY 06/03/15 [History] amLODIPine [Norvasc] 5 mg PO DAILY 06/03/15 [History] metFORMIN HCl [Metformin HCl] 1,000 mg PO BID 06/03/15 [History] rOPINIRole [Requip] 1 mg PO BEDTIME PRN 06/03/15 [History] Acetaminophen [Tylenol] 650 mg PO Q4H PRN tablet 08/14/17 [Rx] Docusate Sodium [Colace] 100 mg PO BID PRN cap 08/14/17 [Rx] Furosemide 20 mg PO Q48H 08/14/17 [History] Isosorbide Mononitrate [Isosorbide Mononitrate ER] 30 mg PO DAILY 08/14/17 [ History] traMADol [Ultram] 50 mg PO Q4H PRN #15 tablet 08/14/17 [Rx] valACYclovir [Valtrex] 1,000 mg PO TID #36 tablet 08/14/17 [Rx] Past Medical History HEENT History: Reports: Hard of Hearing Cardiovascular History: Reports: High Cholesterol, Hypertension, Stents, Other ( See Below) Other Cardiovascular History: carotid surgery Respiratory History: Reports: Asthma Gastrointestinal History: Reports: Colon Polyp Musculoskeletal History: Reports: Arthritis Other Musculoskeletal History: Rib fx, left shoulder fx Endocrine/Metabolic History: Reports: Diabetes, Type II - Infectious Disease History Infectious Disease History: Reports: Chicken Pox, Measles, Mumps, Shingles - Past Surgical History Cardiovascular Surgical History: Reports: Carotid Endarterectomy GI Surgical History: Reports: Colonoscopy Other Male Surgeries/Procedures: vasectomy Social & Family History - Family History Family Medical History: Noncontributory Endocrine/Metabolic: Reports: Diabetes, type II Other Dermatologic Family History: [facility] - Tobacco Use Smoking Status *Q: Never Smoker Years of Tobacco use: 10 Packs/Tins Daily: 1 Used Tobacco, but Quit: Yes Month Tobacco Last Used: 1969 Second Hand Smoke Exposure: No - Caffeine Use Caffeine Use: Reports: Coffee - Alcohol Use Days Per Week of Alcohol Use: 1 Number of Drinks Per Day: 1 Total Drinks Per Week: 1 - Recreational Drug Use Recreational Drug Use: No Drug Use in Last 12 Months: No ED ROS GENERAL - Review of Systems Review Of Systems: ROS reveals no pertinent complaints other than HPI. ED EXAM, SKIN/RASH Exam: See Below (See dictation) Course - Vital Signs Last Recorded V/S: Last Vital Signs Temp 36.5 C 09/01/17 09:12 Pulse 85 09/01/17 09:12 Resp 18 09/01/17 09:12 BP 169/120 H 09/01/17 09:12 Pulse Ox 95 09/01/17 09:12 Departure - Departure Time of Disposition: :31 Disposition: Home, Self-Care 01 Condition: Good Clinical Impression: Pruritus - Discharge Information Referrals: Anthony Miller DO [Primary Care Provider] - Additional Instructions: The following information is given to patients seen in the emergency department who are being discharged to home. This information is to outline your options for follow-up care. We provide all patients seen in our emergency department with a follow-up referral. The need for follow-up, as well as the timing and circumstances, are variable depending upon the specifics of your emergency department visit. If you don't have a primary care physician on staff, we will provide you with a referral. We always advise you to contact your personal physician following an emergency department visit to inform them of the circumstance of the visit and for follow-up with them and/or the need for any referrals to a consulting specialist. The emergency department will also refer you to a specialist when appropriate. This referral assures that you have the opportunity for followup care with a specialist. All of these measure are taken in an effort to provide you with optimal care, which includes your followup. Under all circumstances we always encourage you to contact your private physician who remains a resource for coordinating your care. When calling for followup care, please make the office aware that this follow-up is from your recent emergency room visit. If for any reason you are refused follow-up, please contact the [facility] emergency department at and asked to speak to the emergency department charge nurse. Axeladryl as prescribed follow-up medical doctor as discussed return as needed as discussed
== END 2017-09-01 09:38 | disposition home or self-care (01) ==
LOC: MW.ED 09:02
DX: L29.9 Pruritus, unspecified (principal); I10 Essential (primary) hypertension; E78.00 Pure hypercholesterolemia, unspecified; E11.9 Type 2 diabetes mellitus without complications; Z87.891 Personal history of nicotine dependence; Z79.84 Long term (current) use of oral hypoglycemic drugs; Z79.82 Long term (current) use of aspirin; Z79.02 Long term (current) use of antithrombotics/antiplatelets; Z79.899 Other long term (current) drug therapy; Z88.1 Allergy status to other antibiotic agents; Z88.2 Allergy status to sulfonamides; Z88.8 Allergy status to other drugs, medicaments and biological substances; B02.9 Zoster without complications
CPT/HCPCS: 99282; 99283

== ENCOUNTER 2017-09-01 18:02 | Emergency (ER) | payer MEDICARE, BC ==
[2017-09-01 18:21] VITALS: BP 192/89
--- NOTE | 2017-09-01 18:39 | EDM.PDOC ---
ED HPI GENERAL MEDICAL PROBLEM - General Chief Complaint: Skin Complaint Stated Complaint: ITCH Time Seen by Provider: 09/01/17 18:39 - History of Present Illness INITIAL COMMENTS - FREE TEXT/NARRATIVE: HISTORY AND PHYSICAL: History of present illness: Patient 77-year-old with a history of pruritus that's left hemithoracic region is been diagnosed prior with a zoster dermatitis who was discharged earlier and prescribed Benadryl to be taken as prescribed. He returns with persistent pruritus I discussed with him the limitations regarding his clinical statement and informed him that I will refer him to dermatology at a larger institution. Review of systems: As per history of present illness and below otherwise all systems reviewed and negative. Past medical history: As per history of present illness and as reviewed below otherwise noncontributory. Surgical history: As per history of present illness and as reviewed below otherwise noncontributory. Social history: No reported history of drug or alcohol abuse. Family history: As per history of present illness and as reviewed below otherwise noncontributory. Physical exam: No interval change from prior Diagnostics: None Therapeutics: None Impression: #1 pruritus #2 history of herpes zoster Definitive disposition and diagnosis as appropriate pending reevaluation and review of above. back Pain Score (Numeric/FACES): 5 - Related Data Allergies Allergy/AdvReac Type Severity Reaction Status Date / Time celecoxib [From Celebrex] Allergy Cannot Verified 09/01/17 18:18 Remember oxytetracycline Allergy Diarrhea Verified 09/01/17 18:18 [From Terramycin] oxytetracycline HCl Allergy Diarrhea Verified 09/01/17 18:18 [From Terramycin] sulfamethoxazole Allergy Headache Verified 09/01/17 18:18 [From Bactrim] trimethoprim [From Bactrim] Allergy Headache Verified 09/01/17 18:18 Home Meds: Home Meds Aspirin [Halfprin] 81 mg PO DAILY 06/03/15 [History] Clopidogrel Bisulfate [Clopidogrel] 75 mg PO DAILY 06/03/15 [History] Exenatide [Byetta] 10 mcg SUBCUT BID 06/03/15 [History] Glimepiride 4 mg PO BID 06/03/15 [History] Losartan Potassium 100 mg PO DAILY 06/03/15 [History] Metoprolol Succinate [Toprol XL] 25 mg PO BID 06/03/15 [History] Nitroglycerin 1 spray SL ASDIRECTED PRN 06/03/15 [History] Omeprazole Magnesium [Prilosec Otc] 20 mg PO DAILY 06/03/15 [History] Promethazine HCl 25 mg PO Q3HR PRN 06/03/15 [History] Rosuvastatin [Crestor] 20 mg PO DAILY 06/03/15 [History] amLODIPine [Norvasc] 5 mg PO DAILY 06/03/15 [History] metFORMIN HCl [Metformin HCl] 1,000 mg PO BID 06/03/15 [History] rOPINIRole [Requip] 1 mg PO BEDTIME PRN 06/03/15 [History] Acetaminophen [Tylenol] 650 mg PO Q4H PRN tablet 08/14/17 [Rx] Docusate Sodium [Colace] 100 mg PO BID PRN cap 08/14/17 [Rx] Furosemide 20 mg PO Q48H 08/14/17 [History] Isosorbide Mononitrate [Isosorbide Mononitrate ER] 30 mg PO DAILY 08/14/17 [ History] traMADol [Ultram] 50 mg PO Q4H PRN #15 tablet 08/14/17 [Rx] valACYclovir [Valtrex] 1,000 mg PO TID #36 tablet 08/14/17 [Rx] Past Medical History HEENT History: Reports: Hard of Hearing Cardiovascular History: Reports: High Cholesterol, Hypertension, Stents, Other ( See Below) Other Cardiovascular History: carotid surgery Respiratory History: Reports: Asthma Gastrointestinal History: Reports: Colon Polyp Musculoskeletal History: Reports: Arthritis Other Musculoskeletal History: Rib fx, left shoulder fx Endocrine/Metabolic History: Reports: Diabetes, Type II Hematologic History: Reports: None Immunologic History: Reports: None Oncologic (Cancer) History: Reports: None - Infectious Disease History Infectious Disease History: Reports: Chicken Pox, Measles, Mumps, Shingles - Past Surgical History Head Surgeries/Procedures: Reports: None Cardiovascular Surgical History: Reports: Carotid Endarterectomy GI Surgical History: Reports: Colonoscopy Other Male Surgeries/Procedures: vasectomy Social & Family History - Family History Family Medical History: Noncontributory Endocrine/Metabolic: Reports: Diabetes, type II Other Dermatologic Family History: states niecehadshingles - Tobacco Use Smoking Status *Q: Never Smoker Years of Tobacco use: 10 Packs/Tins Daily: 1 Used Tobacco, but Quit: Yes Month Tobacco Last Used: 1969 Second Hand Smoke Exposure: No - Caffeine Use Caffeine Use: Reports: None - Alcohol Use Days Per Week of Alcohol Use: 1 Number of Drinks Per Day: 1 Total Drinks Per Week: 1 - Recreational Drug Use Recreational Drug Use: No Drug Use in Last 12 Months: No ED ROS GENERAL - Review of Systems Review Of Systems: ROS reveals no pertinent complaints other than HPI. ED EXAM, SKIN/RASH Exam: See Below (dictation) Course - Vital Signs Last Recorded V/S: Last Vital Signs Temp 36.6 C 09/01/17 18:19 Pulse 76 09/01/17 18:19 Resp 18 09/01/17 18:19 BP 192/89 H 09/01/17 18:19 Pulse Ox 96 09/01/17 18:19 Departure - Departure Time of Disposition: 18:38 Disposition: Home, Self-Care 01 Condition: Good Clinical Impression: Pruritus, History of herpes zoster - Discharge Information Referrals: Anthony Miller DO [Primary Care Provider] - Additional Instructions: The following information is given to patients seen in the emergency department who are being discharged to home. This information is to outline your options for follow-up care. We provide all patients seen in our emergency department with a follow-up referral. The need for follow-up, as well as the timing and circumstances, are variable depending upon the specifics of your emergency department visit. If you don't have a primary care physician on staff, we will provide you with a referral. We always advise you to contact your personal physician following an emergency department visit to inform them of the circumstance of the visit and for follow-up with them and/or the need for any referrals to a consulting specialist. The emergency department will also refer you to a specialist when appropriate. This referral assures that you have the opportunity for followup care with a specialist. All of these measure are taken in an effort to provide you with optimal care, which includes your followup. Under all circumstances we always encourage you to contact your private physician who remains a resource for coordinating your care. When calling for followup care, please make the office aware that this follow-up is from your recent emergency room visit. If for any reason you are refused follow-up, please contact the [facility] emergency department at and asked to speak to the emergency department charge nurse. Dermatology referral as discussed Benadryl as directed topical hydrocortisone as directed and return as needed as discussed
== END 2017-09-01 18:48 | disposition home or self-care (01) ==
LOC: MW.ED 18:02
DX: L29.9 Pruritus, unspecified (principal); B02.9 Zoster without complications; I10 Essential (primary) hypertension; E78.00 Pure hypercholesterolemia, unspecified; E11.9 Type 2 diabetes mellitus without complications; Z79.82 Long term (current) use of aspirin; Z79.02 Long term (current) use of antithrombotics/antiplatelets; Z79.84 Long term (current) use of oral hypoglycemic drugs; Z88.1 Allergy status to other antibiotic agents; Z88.2 Allergy status to sulfonamides; Z88.8 Allergy status to other drugs, medicaments and biological substances; Z87.891 Personal history of nicotine dependence
CPT/HCPCS: 99282

== ENCOUNTER 2021-03-18 20:19 | Emergency (ER) | payer MEDICARE, BC ==
[2021-03-18] MEDS ORDERED: Sodium Chloride 0.9% 2.5 ML Syringe FLUSH PRN (20:31)
[2021-03-18] MEDS ORDERED: Lactated Ringers 1,000 ML IV ONE (20:31)
[2021-03-18] MEDS ORDERED: Sodium Chloride 0.9% 10 ML Syringe FLUSH PRN (20:31)
[2021-03-18 20:39] VITALS: BP 138/67; PULSE 56
--- NOTE | 2021-03-18 20:41 | EDM.PDOC ---
ED HPI GENERAL MEDICAL PROBLEM - General Chief Complaint: Diabetic Complaint Stated Complaint: HIGH GLUCOSE LAB Time Seen by Provider: 03/18/21 20:38 Source of Information: Reports: Patient History Limitations: Reports: No Limitations - History of Present Illness INITIAL COMMENTS - FREE TEXT/NARRATIVE: 81-year-old male with history of diabetes presents with hyperglycemia. He had a routine checkup at the clinic today with blood glucose registering in the 600s. He was called back for further assessment in the ED. He has no symptoms currently. Patient denies fever, chills, headache, chest pain, shortness of breath, abdominal pain, focal numbness or weakness. ROS: A 10-point review of systems, other than pertinent positives and negatives as stated per HPI, is otherwise negative Past medical history: No additional pertinent history Past Surgical history: No additional pertinent history Social history: No additional pertinent history Family history: No additional pertinent history PHYSICAL EXAM General: AOx4, GCS = 15, No distress HEENT: dry mucous membrane Neck: supple, no meningismus, no Kernig or Brudzinski Cardiac: S1S2 RRR Respiratory: CTAB, no crackles or rales, no wheezing Abdomen: Soft, nontender, no rebound or guarding, nondistended, no pulsatile mass. Back: nontender Musculoskeletal: NVI distally, no deformity Neuro: No focal deficits, CN 2 - 12 WNL. - Related Data Allergies Allergy/AdvReac Type Severity Reaction Status Date / Time celecoxib [From Celebrex] Allergy Cannot Verified 03/18/21 22:36 Remember oxytetracycline Allergy Diarrhea Verified 03/18/21 22:36 [From Terramycin] oxytetracycline HCl Allergy Diarrhea Verified 03/18/21 22:36 [From Terramycin] sulfamethoxazole Allergy Headache Verified 03/18/21 22:36 [From Bactrim] trimethoprim [From Bactrim] Allergy Headache Verified 03/18/21 22:36 Home Meds: Home Meds Aspirin [Halfprin] 81 mg PO DAILY 06/03/15 [History] Clopidogrel Bisulfate [Clopidogrel] 75 mg PO DAILY 06/03/15 [History] Exenatide [Byetta] 10 mcg SUBCUT BID 06/03/15 [History] Glimepiride 4 mg PO BID 06/03/15 [History] Losartan Potassium 100 mg PO DAILY 06/03/15 [History] Metoprolol Succinate [Toprol XL] 25 mg PO BID 06/03/15 [History] Nitroglycerin 1 spray SL ASDIRECTED PRN 06/03/15 [History] Omeprazole Magnesium [Prilosec Otc] 20 mg PO DAILY 06/03/15 [History] Promethazine HCl 25 mg PO Q3HR PRN 06/03/15 [History] Rosuvastatin [Crestor] 20 mg PO DAILY 06/03/15 [History] amLODIPine [Norvasc] 5 mg PO DAILY 06/03/15 [History] metFORMIN HCl [Metformin HCl] 1,000 mg PO BID 06/03/15 [History] rOPINIRole [Requip] 1 mg PO BEDTIME PRN 06/03/15 [History] Acetaminophen [Tylenol] 650 mg PO Q4H PRN tablet 08/14/17 [Rx] Docusate Sodium [Colace] 100 mg PO BID PRN cap 08/14/17 [Rx] Furosemide 20 mg PO Q48H 08/14/17 [History] Isosorbide Mononitrate [Isosorbide Mononitrate ER] 30 mg PO DAILY 08/14/17 [History] traMADol [Ultram] 50 mg PO Q4H PRN #15 tablet 08/14/17 [Rx] valACYclovir [Valtrex] 1,000 mg PO TID #36 tablet 08/14/17 [Rx] Past Medical History HEENT History: Reports: Hard of Hearing Cardiovascular History: Reports: High Cholesterol, Hypertension, Stents, Other (See Below) Other Cardiovascular History: carotid surgery Respiratory History: Reports: Asthma Gastrointestinal History: Reports: Colon Polyp Musculoskeletal History: Reports: Arthritis Other Musculoskeletal History: Rib fx, left shoulder fx Endocrine/Metabolic History: Reports: Diabetes, Type II Hematologic History: Reports: None Immunologic History: Reports: None Oncologic (Cancer) History: Reports: None - Infectious Disease History Infectious Disease History: Reports: Chicken Pox, Measles, Mumps, Shingles - Past Surgical History Head Surgeries/Procedures: Reports: None Cardiovascular Surgical History: Reports: Carotid Endarterectomy GI Surgical History: Reports: Colonoscopy Other Male Surgeries/Procedures: vasectomy Social & Family History - Family History Family Medical History: No Pertinent Family History Endocrine/Metabolic: Reports: Diabetes, type II Other Dermatologic Family History: states niecehadshingles - Caffeine Use Caffeine Use: Reports: None ED ROS GENERAL - Review of Systems Review Of Systems: See Below (see dictation) ED EXAM GENERAL NO PERIP PULSE - Physical Exam Exam: See Below (see dictation) Course - Vital Signs Last Recorded V/S: Last Vital Signs Temp 97.9 F 03/18/21 20:25 Pulse 56 L 03/18/21 20:25 Resp 16 03/18/21 20:25 BP 138/67 03/18/21 20:25 Pulse Ox 94 L 03/18/21 20:25 - Orders/Labs/Meds Orders: Active Orders 24 hr Category Date Time Status Cardiac Monitoring [RC] . DIRECTED Care 03/18/21 20:31 Active Dextrose 50% in Water Med 03/18/21 21:37 Active 50 ml IVPUSH ASDIRECTED PRN Dextrose 50% in Water Med 03/18/21 22:40 Ordered 50 ml IVPUSH ASDIRECTED PRN Glucagon,Human Recombinant [GlucaGen] Med 03/18/21 21:37 Active 1 mg IM ASDIRECTED PRN Glucagon,Human Recombinant [GlucaGen] Med 03/18/21 22:40 Ordered 1 mg IM ASDIRECTED PRN Sodium Chloride 0.9% [Saline Flush] Med 03/18/21 20:31 Active 10 ml FLUSH ASDIRECTED PRN Sodium Chloride 0.9% [Saline Flush] Med 03/18/21 20:31 Active 2.5 ml FLUSH ASDIRECTED PRN Saline Lock Insert [OM.PC] Stat Oth 03/18/21 20:32 Ordered Medication Orders Dextrose/Water (50% Dextrose In Water 50 Ml Syringe) 50 ml IVPUSH ASDIRECTED PRN PRN Reason: Hypoglycemia Dextrose/Water (50% Dextrose In Water 50 Ml Syringe) 50 ml IVPUSH ASDIRECTED PRN PRN Reason: Hypoglycemia Glucagon (Glucagon,Human Recombinant 1 Mg Vial) 1 mg IM ASDIRECTED PRN PRN Reason: Hypoglycemia Glucagon (Glucagon,Human Recombinant 1 Mg Vial) 1 mg IM ASDIRECTED PRN PRN Reason: Hypoglycemia Sodium Chloride (Sodium Chloride 0.9% 10 Ml Syringe) 10 ml FLUSH ASDIRECTED PRN PRN Reason: Keep Vein Open Sodium Chloride (Sodium Chloride 0.9% 2.5 Ml Syringe) 2.5 ml FLUSH ASDIRECTED PRN PRN Reason: Keep Vein Open Labs: Laboratory Tests 03/18/21 03/18/21 03/18/21 Range/Units 20:30 20:36 20:43 WBC 8.90 (4.0-11.0) K/uL RBC 4.45 L (4.50-5.90) M/uL Hgb 14.0 (13.0-17.0) g/dL Hct 39.0 (38.0-50.0) % MCV 87.6 (80.0-98.0) fL MCH 31.5 (27.0-32.0) pg MCHC 35.9 (31.0-37.0) g/dL RDW Std Deviation 43.3 (28.0-62.0) fl RDW Coeff of [place] 14 (11.0-15.0) % Plt Count 213 (150-400) K/uL MPV 11.40 (7.40-12.00) fL Neut % (Auto) 70.2 (48.0-80.0) % Lymph % (Auto) 20.7 (16.0-40.0) % Heard % (Auto) 8.0 (0.0-15.0) % Eos % (Auto) 0.9 (0.0-7.0) % Baso % (Auto) 0.2 (0.0-1.5) % Neut # (Auto) 6.3 H (1.4-5.7) K/uL Lymph # (Auto) 1.8 (0.6-2.4) K/uL Heard # (Auto) 0.7 (0.0-0.8) K/uL Eos # (Auto) 0.1 (0.0-0.7) K/uL Baso # (Auto) 0.0 (0.0-0.1) K/uL Nucleated RBC % 0.0 /100WBC Nucleated RBCs # 0 K/uL Sodium (136-148) mmol/L Potassium (3.5-5.1) mmol/L Chloride (98-107) mmol/L Carbon Dioxide (21.0-32.0) mmol/L BUN (7.0-18.0) mg/dL Creatinine (0.8-1.3) mg/dL Est Cr Clr Drug Dosing Estimated GFR (MDRD) ml/min Glucose (74-106) mg/dL POC Glucose > 519 H* (70-99) mg/dL Calcium (8.5-10.1) mg/dL Magnesium (1.8-2.4) mg/dL Total Bilirubin (0.2-1.0) mg/dL AST (15-37) IU/L ALT (14-63) IU/L Alkaline Phosphatase (46-116) U/L Total Protein (6.4-8.2) g/dL Albumin (3.4-5.0) g/dL Globulin (2.6-4.0) g/dL Albumin/Globulin Ratio (0.9-1.6) Urine Color YELLOW Urine Appearance CLEAR Urine pH 6.0 (5.0-8.0) Ur Specific [place] 1.015 (1.001-1.035) Urine Protein 100 H (NEGATIVE) mg/dL Urine Glucose (UA) >=1000 (NEGATIVE) mg/dL Urine Ketones NEGATIVE (NEGATIVE) mg/dL Urine Occult Blood NEGATIVE (NEGATIVE) Urine Nitrite NEGATIVE (NEGATIVE) Urine Bilirubin NEGATIVE (NEGATIVE) Urine Urobilinogen 0.2 (<2.0) EU/dL Ur Leukocyte Esterase NEGATIVE (NEGATIVE) Urine RBC NONE SEEN (0-2/HPF) Urine WBC 3-6 (0-5/HPF) Ur Epithelial Cells FEW (NONE-FEW) Urine Bacteria FEW (NEGATIVE) Urine Mucus LIGHT (NONE-MOD) Ketones (NEG) 03/18/21 03/18/21 03/18/21 Range/Units 20:43 20:43 21:55 WBC (4.0-11.0) K/uL RBC (4.50-5.90) M/uL Hgb (13.0-17.0) g/dL Hct (38.0-50.0) % MCV (80.0-98.0) fL MCH (27.0-32.0) pg MCHC (31.0-37.0) g/dL RDW Std Deviation (28.0-62.0) fl RDW Coeff of [place] (11.0-15.0) % Plt Count (150-400) K/uL MPV (7.40-12.00) fL Neut % (Auto) (48.0-80.0) % Lymph % (Auto) (16.0-40.0) % Heard % (Auto) (0.0-15.0) % Eos % (Auto) (0.0-7.0) % Baso % (Auto) (0.0-1.5) % Neut # (Auto) (1.4-5.7) K/uL Lymph # (Auto) (0.6-2.4) K/uL Heard # (Auto) (0.0-0.8) K/uL Eos # (Auto) (0.0-0.7) K/uL Baso # (Auto) (0.0-0.1) K/uL Nucleated RBC % /100WBC Nucleated RBCs # K/uL Sodium 128 L (136-148) mmol/L Potassium 4.5 (3.5-5.1) mmol/L Chloride 92 L (98-107) mmol/L Carbon Dioxide 24.6 (21.0-32.0) mmol/L BUN 24 H (7.0-18.0) mg/dL Creatinine 2.3 H (0.8-1.3) mg/dL Est Cr Clr Drug Dosing TNP Estimated GFR (MDRD) 27.3 ml/min Glucose 661 H* (74-106) mg/dL POC Glucose > 519 H* (70-99) mg/dL Calcium 8.5 (8.5-10.1) mg/dL Magnesium 1.7 L (1.8-2.4) mg/dL Total Bilirubin 0.6 (0.2-1.0) mg/dL AST 12 L (15-37) IU/L ALT 12 L (14-63) IU/L Alkaline Phosphatase 120 H (46-116) U/L Total Protein 7.3 (6.4-8.2) g/dL Albumin 3.1 L (3.4-5.0) g/dL Globulin 4.2 H (2.6-4.0) g/dL Albumin/Globulin Ratio 0.7 L (0.9-1.6) Urine Color Urine Appearance Urine pH (5.0-8.0) Ur Specific [place] (1.001-1.035) Urine Protein (NEGATIVE) mg/dL Urine Glucose (UA) (NEGATIVE) mg/dL Urine Ketones (NEGATIVE) mg/dL Urine Occult Blood (NEGATIVE) Urine Nitrite (NEGATIVE) Urine Bilirubin (NEGATIVE) Urine Urobilinogen (<2.0) EU/dL Ur Leukocyte Esterase (NEGATIVE) Urine RBC (0-2/HPF) Urine WBC (0-5/HPF) Ur Epithelial Cells (NONE-FEW) Urine Bacteria (NEGATIVE) Urine Mucus (NONE-MOD) Ketones NEGATIVE (NEG) 03/18/21 Range/Units 22:39 WBC (4.0-11.0) K/uL RBC (4.50-5.90) M/uL Hgb (13.0-17.0) g/dL Hct (38.0-50.0) % MCV (80.0-98.0) fL MCH (27.0-32.0) pg MCHC (31.0-37.0) g/dL RDW Std Deviation (28.0-62.0) fl RDW Coeff of [place] (11.0-15.0) % Plt Count (150-400) K/uL MPV (7.40-12.00) fL Neut % (Auto) (48.0-80.0) % Lymph % (Auto) (16.0-40.0) % Heard % (Auto) (0.0-15.0) % Eos % (Auto) (0.0-7.0) % Baso % (Auto) (0.0-1.5) % Neut # (Auto) (1.4-5.7) K/uL Lymph # (Auto) (0.6-2.4) K/uL Heard # (Auto) (0.0-0.8) K/uL Eos # (Auto) (0.0-0.7) K/uL Baso # (Auto) (0.0-0.1) K/uL Nucleated RBC % /100WBC Nucleated RBCs # K/uL Sodium (136-148) mmol/L Potassium (3.5-5.1) mmol/L Chloride (98-107) mmol/L Carbon Dioxide (21.0-32.0) mmol/L BUN (7.0-18.0) mg/dL Creatinine (0.8-1.3) mg/dL Est Cr Clr Drug Dosing Estimated GFR (MDRD) ml/min Glucose (74-106) mg/dL POC Glucose > 519 H* (70-99) mg/dL Calcium (8.5-10.1) mg/dL Magnesium (1.8-2.4) mg/dL Total Bilirubin (0.2-1.0) mg/dL AST (15-37) IU/L ALT (14-63) IU/L Alkaline Phosphatase (46-116) U/L Total Protein (6.4-8.2) g/dL Albumin (3.4-5.0) g/dL Globulin (2.6-4.0) g/dL Albumin/Globulin Ratio (0.9-1.6) Urine Color Urine Appearance Urine pH (5.0-8.0) Ur Specific [place] (1.001-1.035) Urine Protein (NEGATIVE) mg/dL Urine Glucose (UA) (NEGATIVE) mg/dL Urine Ketones (NEGATIVE) mg/dL Urine Occult Blood (NEGATIVE) Urine Nitrite (NEGATIVE) Urine Bilirubin (NEGATIVE) Urine Urobilinogen (<2.0) EU/dL Ur Leukocyte Esterase (NEGATIVE) Urine RBC (0-2/HPF) Urine WBC (0-5/HPF) Ur Epithelial Cells (NONE-FEW) Urine Bacteria (NEGATIVE) Urine Mucus (NONE-MOD) Ketones (NEG) Meds: Medications Generic Name Dose Route Start Last Admin Trade Name Freq PRN Reason Stop Dose Admin Dextrose/Water 50 ml 03/18/21 21:37 50% Dextrose In Water 50 Ml Syringe IVPUSH ASDIRECTED PRN Hypoglycemia Dextrose/Water 50 ml 03/18/21 22:40 50% Dextrose In Water 50 Ml Syringe IVPUSH ASDIRECTED PRN Hypoglycemia Glucagon 1 mg 03/18/21 21:37 Glucagon,Human Recombinant 1 Mg Vial IM ASDIRECTED PRN Hypoglycemia Glucagon 1 mg 03/18/21 22:40 Glucagon,Human Recombinant 1 Mg Vial IM ASDIRECTED PRN Hypoglycemia Sodium Chloride 10 ml 03/18/21 20:31 Sodium Chloride 0.9% 10 Ml Syringe FLUSH ASDIRECTED PRN Keep Vein Open Sodium Chloride 2.5 ml 03/18/21 20:31 Sodium Chloride 0.9% 2.5 Ml Syringe FLUSH ASDIRECTED PRN Keep Vein Open Discontinued Medications Generic Name Dose Route Start Last Admin Trade Name Abraham PRN Reason Stop Dose Admin Lactated Ringer's 1,000 mls @ 999 mls/hr 03/18/21 20:31 03/18/21 20:43 Ringers, Lactated IV 03/18/21 21:31 999 mls/hr .BOLUS ONE Administration Insulin Human Regular 5 unit 03/18/21 21:37 03/18/21 22:02 Insulin Regular, Human 100 Units/Ml 10 Ml Vial IVPUSH 03/18/21 21:38 5 units ONETIME ONE Administration Protocol Insulin Human Regular 5 unit 03/18/21 22:40 03/18/21 22:44 Insulin Regular, Human 100 Units/Ml 10 Ml Vial IVPUSH 03/18/21 22:41 5 units ONETIME ONE Administration Protocol - Re-Assessments/Exams Free Text/Narrative Re-Assessment/Exam: 03/18/21 21:40 clinical educator assessed the patient at bedside, given tresiba 24 units now and prescribed Tresiba 24 units nightly, and arranged to have the patient follow-up tomorrow morning. 03/18/21 21:57 Blood glucose after tresiba 24units and IV fluids = HIGH, will give 5U IV regular insulin. 03/18/21 23:15 After IVF and 10 units IV regular insulin in the ER, his BG improved and is currently stable for discharge. I performed a repeat exam and did not appreciate new abnormal findings. Patient exhibits normal vital signs and has a normal gait on road test. I advised the patient to return to the ER for reevaluation if symptoms worsened, including fever, worsening pain, or any other worrisome symptoms. I instructed the patient to follow up with the diabetic nurse tomorrow. MEDICAL DECISION MAKING: I reviewed the patients past medical records, lab and radiographic findings. I discussed the case with the patient. My differential diagnosis included: Hyperglycemia, medication noncompliance. Patient's creatinine = 2.3, which is baseline compared to previous blood work. Patient has no complaints today. He was not acidotic, no signs of DKA. clinical educator assessed him and prescribed him medications, and arranged to have him follow-up with her tomorrow morning. Departure - Departure Time of Disposition: 23:16 Disposition: Home, Self-Care 01 Condition: Good Clinical Impression: Hyperglycemia, CKD (chronic kidney disease) - Discharge Information *PRESCRIPTION DRUG MONITORING PROGRAM REVIEWED*: Not Applicable *COPY OF PRESCRIPTION DRUG MONITORING REPORT IN PATIENT JUSTIN: Not Applicable Instructions: Hyperglycemia, [id number], Chronic Kidney Disease, Adult, [id number] Referrals: Gennaro Hernandez MD [Primary Care Provider] - 2 Days Forms: ED Department Discharge Additional Instructions: The need for follow-up, as well as the timing and circumstances, are variable depending upon the specifics of your emergency department visit. If you don't have a primary care physician on staff, we will provide you with a referral. We always advise you to contact your personal physician following an emergency department visit to inform them of the circumstance of the visit and for follow-up with them and/or the need for any referrals to a consulting specialist. The emergency department will also refer you to a specialist when appropriate. This referral assures that you have the opportunity for follow-up care with a specialist. All of these measure are taken in an effort to provide you with optimal care, which includes your follow-up. Under all circumstances we always encourage you to contact your private physician who remains a resource for coordinating your care. When calling for follow-up care, please make the office aware that this follow-up is from your recent emergency room visit. If for any reason you are refused follow-up, please contact the [facility] Emergency Department at and asked to speak to the emergency department charge nurse. PLease follow up with the clinic below TOMORROW. Diabetes Education [facility] - Diabetes Education [address] [place] [id number] Sepsis Event Note (ED) - Focused Exam Vital Signs: Vital Signs Temp Pulse Resp BP Pulse Ox 03/18/21 20:25 97.9 F 56 L 16 138/67 94 L - My Orders Last 24 Hours: My Active Orders 03/18/21 20:31 Cardiac Monitoring [RC] . DIRECTED Sodium Chloride 0.9% [Saline Flush] 10 ml FLUSH ASDIRECTED PRN Sodium Chloride 0.9% [Saline Flush] 2.5 ml FLUSH ASDIRECTED PRN 03/18/21 20:32 Saline Lock Insert [OM.PC] Stat 03/18/21 21:37 Dextrose 50% in Water 50 ml IVPUSH ASDIRECTED PRN Glucagon,Human Recombinant [GlucaGen] 1 mg IM ASDIRECTED PRN 03/18/21 22:40 Dextrose 50% in Water 50 ml IVPUSH ASDIRECTED PRN Glucagon,Human Recombinant [GlucaGen] 1 mg IM ASDIRECTED PRN - Assessment/Plan Last 24 Hours: My Active Orders 03/18/21 20:31 Cardiac Monitoring [RC] . DIRECTED Sodium Chloride 0.9% [Saline Flush] 10 ml FLUSH ASDIRECTED PRN Sodium Chloride 0.9% [Saline Flush] 2.5 ml FLUSH ASDIRECTED PRN 03/18/21 20:32 Saline Lock Insert [OM.PC] Stat 03/18/21 21:37 Dextrose 50% in Water 50 ml IVPUSH ASDIRECTED PRN Glucagon,Human Recombinant [GlucaGen] 1 mg IM ASDIRECTED PRN 03/18/21 22:40 Dextrose 50% in Water 50 ml IVPUSH ASDIRECTED PRN Glucagon,Human Recombinant [GlucaGen] 1 mg IM ASDIRECTED PRN
[2021-03-18 21:17] LABS: BLOOD UREA NITROGEN,BUN 24 mg/dL (7.0-18.0); CARBON DIOXIDE,CO2 24.6 mmol/L (21.0-32.0); CHLORIDE,CL 92 mmol/L (98-107); POTASSIUM,K 4.5 mmol/L (3.5-5.1); SODIUM,NA 128 mmol/L (136-148)
[2021-03-18 21:21] LABS: GLUCOSE RANDOM 661 mg/dL (74-106)
[2021-03-18] MEDS ORDERED: Glucagon,Human Recombinant 1 MG Vial IM PRN ×2 (21:37→22:40)
[2021-03-18] MEDS ORDERED: Insulin Regular, Human 100 Units/ML 10 ML Vial IVPUSH ONE ×2 (21:37→22:40)
[2021-03-18] MEDS ORDERED: 50% Dextrose in Water 50 ML Syringe IVPUSH PRN ×2 (21:37→22:40)
== END 2021-03-18 23:24 | disposition home or self-care (01) ==
LOC: MW.ED 20:19
DX: E11.65 Type 2 diabetes mellitus with hyperglycemia (principal); E11.22 Type 2 diabetes mellitus with diabetic chronic kidney disease; I12.9 Hypertensive chronic kidney disease with stage 1 through stage 4 chronic kidney disease, or unspecified chronic kidney disease; N18.9 Chronic kidney disease, unspecified; Z95.5 Presence of coronary angioplasty implant and graft; Z88.2 Allergy status to sulfonamides; Z88.1 Allergy status to other antibiotic agents; Z79.82 Long term (current) use of aspirin; Z79.02 Long term (current) use of antithrombotics/antiplatelets; Z79.84 Long term (current) use of oral hypoglycemic drugs
CPT/HCPCS: 36415; 80053; 81001; 82009; 82947; 83735; 85025; 99284; J1815; J7120

== ENCOUNTER 2022-04-01 18:48 | Inpatient (IN) | payer MEDICARE, BC ==
[2022-04-01] MEDS ORDERED: Sodium Chloride 0.9% 500 ML IV ONE (19:34)
[2022-04-01] MEDS ORDERED: Ondansetron 4 MG/2 ML SDV IVPUSH ONE (19:55)
[2022-04-01] MEDS ORDERED: Morphine 4 MG/ML VIAL IVPUSH ONE (19:55)
[2022-04-01 20:30] LABS: CARBON DIOXIDE,CO2 24.2 mmol/L (21.0-32.0); POTASSIUM,K 4.2 mmol/L (3.5-5.1)
[2022-04-01] MEDS ORDERED: metroNIDAZOLE/Normal Saline 500 MG in Premix Bag 1 BAG IV ONE (21:55)
[2022-04-01] MEDS ORDERED: Levofloxacin/Dextrose 5%-Water 750 MG in Premix Bag 1 BAG IV ONE (21:55)
[2022-04-01] MEDS ORDERED: Acetaminophen 325 MG Tab PO PRN (22:31)
[2022-04-01] MEDS ORDERED: Morphine 2 MG/ML SYRINGE IVPUSH PRN (22:31)
[2022-04-01] MEDS ORDERED: Ondansetron 4 MG/2 ML SDV IVPUSH PRN (22:31)
[2022-04-01] MEDS ORDERED: Magnesium Sulfate/Water 2 GM in Premix Bag 1 BAG IV ONE (22:37)
[2022-04-01] MEDS ORDERED: Heparin Sodium 5,000 Units/ML Vial SUBCUT SCH ×2 (22:45)
[2022-04-01] MEDS: Lactated Ringers 1,000 ML IV SCH (23:45)
[2022-04-02] MEDS ORDERED: Ciprofloxacin in D5W 400 MG in Premix Bag 1 BAG IV SCH ×2
[2022-04-02] MEDS ORDERED: 50% Dextrose in Water 50 ML Syringe IVPUSH PRN (00:15)
[2022-04-02] MEDS ORDERED: Glucagon,Human Recombinant 1 MG Vial IM PRN (00:15)
[2022-04-02] MEDS: Pantoprazole 40 MG in Sodium Chloride 0.9% 10 ML IVPUSH SCH ×2 (00:44→21:43)
[2022-04-02] MEDS: Insulin Aspart 100 Units/ML 3 ML Pen SUBCUT SCH ×5 (00:47→22:32)
[2022-04-02] MEDS: metroNIDAZOLE/Normal Saline 500 MG in Premix Bag 1 BAG IV SCH ×3 (07:22→18:30)
[2022-04-02] MEDS: Lactated Ringers 1,000 ML IV SCH ×2 (07:26→17:32)
[2022-04-02] MEDS: Heparin Sodium 5,000 Units/ML Vial SUBCUT SCH ×3 (08:14→23:27)
[2022-04-02 08:55] LABS: POTASSIUM,K 4.2 mmol/L (3.5-5.1)
[2022-04-02] MEDS ORDERED: Lactated Ringers 1,000 ML IV ONE (12:22)
[2022-04-02] MEDS ORDERED: rOPINIRole 1 MG Tab PO PRN (20:51)
[2022-04-02] MEDS ORDERED: Docusate Sodium 100 MG Cap PO PRN (20:51)
[2022-04-02] MEDS ORDERED: Piperacillin/Tazobactam 3.375 GM in Sodium Chloride 0.9% 50 ML IV SCH (21:00)
[2022-04-02] MEDS ORDERED: Piperacillin/Tazobactam 2.25 GM in Sodium Chloride 0.9% 100 ML IV SCH (21:15)
[2022-04-02] MEDS: Rosuvastatin 10 MG Tab PO SCH (21:39)
[2022-04-02] MEDS: Aspirin 81 MG Tab.EC PO SCH (21:40)
[2022-04-02] MEDS: Isosorbide Mononitrate 30 MG Tab.ER PO SCH (21:41)
[2022-04-02] MEDS: Clopidogrel 75 MG Tab PO SCH (21:41)
[2022-04-02] MEDS ORDERED: VANCOmycin 1.75 GM/350 ML 1.75 GM in Premix Bag 1 BAG IV ONE (22:00)
[2022-04-02] MEDS: Piperacillin/Tazobactam 3.375 GM in Sodium Chloride 0.9% 50 ML IV SCH (22:38)
[2022-04-03] MEDS: Lactated Ringers 1,000 ML IV SCH ×3 (02:32→16:28)
[2022-04-03 06:29] LABS: CARBON DIOXIDE,CO2 21.8 mmol/L (21.0-32.0); POTASSIUM,K 4.1 mmol/L (3.5-5.1)
[2022-04-03] MEDS: Piperacillin/Tazobactam 3.375 GM in Sodium Chloride 0.9% 50 ML IV SCH ×3 (06:38→23:35)
[2022-04-03] MEDS: Insulin Aspart 100 Units/ML 3 ML Pen SUBCUT SCH ×3 (07:26→17:48)
[2022-04-03] MEDS: Clopidogrel 75 MG Tab PO SCH (08:03)
[2022-04-03] MEDS: Rosuvastatin 10 MG Tab PO SCH (08:04)
[2022-04-03] MEDS: Isosorbide Mononitrate 30 MG Tab.ER PO SCH (08:04)
[2022-04-03] MEDS: Aspirin 81 MG Tab.EC PO SCH (08:04)
[2022-04-03] MEDS: Heparin Sodium 5,000 Units/ML Vial SUBCUT SCH (08:06)
[2022-04-03 16:32] LABS: CARBON DIOXIDE,CO2 22.5 mmol/L (21.0-32.0)
[2022-04-03] MEDS: Azithromycin 250 MG Tab PO SCH (17:48)
[2022-04-03] MEDS: Pantoprazole 40 MG in Sodium Chloride 0.9% 10 ML IVPUSH SCH (21:11)
[2022-04-04] MEDS: Lactated Ringers 1,000 ML IV SCH (04:11)
[2022-04-04] MEDS: Piperacillin/Tazobactam 3.375 GM in Sodium Chloride 0.9% 50 ML IV SCH (06:13)
[2022-04-04] MEDS: Insulin Aspart 100 Units/ML 3 ML Pen SUBCUT SCH ×3 (06:29→17:59)
[2022-04-04 07:03] LABS: CARBON DIOXIDE,CO2 21.1 mmol/L (21.0-32.0); POTASSIUM,K 3.9 mmol/L (3.5-5.1)
[2022-04-04] MEDS: Aspirin 81 MG Tab.EC PO SCH (08:20)
[2022-04-04] MEDS: Clopidogrel 75 MG Tab PO SCH (08:20)
[2022-04-04] MEDS: Isosorbide Mononitrate 30 MG Tab.ER PO SCH (08:21)
[2022-04-04] MEDS: Albuterol/Ipratropium 3.0-0.5 MG/3 ML Neb Soln NEB PRN ×2 (08:24→23:08)
[2022-04-04] MEDS: Piperacillin/Tazobactam 2.25 GM in Sodium Chloride 0.9% 50 ML IV SCH ×2 (13:59→20:24)
[2022-04-04] MEDS ORDERED: Furosemide 20 MG/2 ML VIAL IVPUSH ONE (14:30)
[2022-04-04] MEDS: amLODIPine 5 MG Tab PO SCH (14:49)
[2022-04-04] MEDS: Azithromycin 250 MG Tab PO SCH (18:00)
[2022-04-04] MEDS: rOPINIRole 1 MG Tab PO SCH (20:24)
[2022-04-04] MEDS: Tamsulosin 0.4 MG Cap.ER PO SCH (20:25)
[2022-04-04] MEDS: Metoprolol Tartrate 50 MG Tab PO SCH (20:27)
[2022-04-04] MEDS: Pantoprazole 40 MG in Sodium Chloride 0.9% 10 ML IVPUSH SCH (23:00)
[2022-04-04] MEDS: Gabapentin 100 MG Cap PO SCH (23:01)
[2022-04-05] MEDS: Piperacillin/Tazobactam 2.25 GM in Sodium Chloride 0.9% 50 ML IV SCH ×4 (02:28→21:00)
[2022-04-05 07:25] LABS: CARBON DIOXIDE,CO2 22.2 mmol/L (21.0-32.0); POTASSIUM,K 3.8 mmol/L (3.5-5.1)
[2022-04-05] MEDS: Gabapentin 100 MG Cap PO SCH ×3 (07:39→22:16)
[2022-04-05] MEDS: Insulin Aspart 100 Units/ML 3 ML Pen SUBCUT SCH ×3 (07:39→16:52)
[2022-04-05] MEDS: Albuterol/Ipratropium 3.0-0.5 MG/3 ML Neb Soln NEB PRN ×2 (09:00→22:16)
[2022-04-05] MEDS: Isosorbide Mononitrate 30 MG Tab.ER PO SCH (09:38)
[2022-04-05] MEDS: Aspirin 81 MG Tab.EC PO SCH (09:38)
[2022-04-05] MEDS: Metoprolol Tartrate 50 MG Tab PO SCH ×2 (09:38→21:13)
[2022-04-05] MEDS: amLODIPine 5 MG Tab PO SCH (09:38)
[2022-04-05] MEDS: Clopidogrel 75 MG Tab PO SCH (09:39)
[2022-04-05] MEDS: Fluticasone NASAL Spray 16 GM Bottle NASBOTH SCH (10:35)
[2022-04-05] MEDS: Azithromycin 250 MG Tab PO SCH (16:55)
[2022-04-05] MEDS: rOPINIRole 1 MG Tab PO SCH (21:12)
[2022-04-05] MEDS: Tamsulosin 0.4 MG Cap.ER PO SCH (21:13)
[2022-04-05] MEDS: Rosuvastatin 10 MG Tab PO SCH (21:13)
[2022-04-05] MEDS: Pantoprazole 40 MG in Sodium Chloride 0.9% 10 ML IVPUSH SCH (22:16)
[2022-04-06] MEDS: Piperacillin/Tazobactam 2.25 GM in Sodium Chloride 0.9% 50 ML IV SCH ×4 (02:30→18:42)
[2022-04-06] MEDS: Gabapentin 100 MG Cap PO SCH ×3 (05:12→21:25)
[2022-04-06 07:48] LABS: CARBON DIOXIDE,CO2 24.1 mmol/L (21.0-32.0); POTASSIUM,K 3.5 mmol/L (3.5-5.1)
[2022-04-06] MEDS: Insulin Aspart 100 Units/ML 3 ML Pen SUBCUT SCH ×3 (08:01→18:41)
[2022-04-06] MEDS: Clopidogrel 75 MG Tab PO SCH (09:27)
[2022-04-06] MEDS: Aspirin 81 MG Tab.EC PO SCH (09:27)
[2022-04-06] MEDS: Metoprolol Tartrate 50 MG Tab PO SCH ×2 (09:27→21:24)
[2022-04-06] MEDS: Isosorbide Mononitrate 30 MG Tab.ER PO SCH (09:27)
[2022-04-06] MEDS: amLODIPine 5 MG Tab PO SCH (09:27)
[2022-04-06] MEDS: Fluticasone NASAL Spray 16 GM Bottle NASBOTH SCH (09:28)
[2022-04-06] MEDS: Albuterol/Ipratropium 3.0-0.5 MG/3 ML Neb Soln NEB PRN ×2 (09:29→13:58)
[2022-04-06] MEDS ORDERED: Furosemide 40 MG/4 ML VIAL IVPUSH ONE (09:39)
[2022-04-06] MEDS ORDERED: Magnesium Sulfate/Water 2 GM in Premix Bag 1 BAG IV ONE (13:42)
[2022-04-06] MEDS: Azithromycin 250 MG Tab PO SCH (17:51)
[2022-04-06] MEDS: Pantoprazole 40 MG in Sodium Chloride 0.9% 10 ML IVPUSH SCH (21:21)
[2022-04-06] MEDS: rOPINIRole 1 MG Tab PO SCH (21:25)
[2022-04-06] MEDS: Tamsulosin 0.4 MG Cap.ER PO SCH (21:25)
[2022-04-07] MEDS: Piperacillin/Tazobactam 2.25 GM in Sodium Chloride 0.9% 50 ML IV SCH ×4 (01:29→19:47)
[2022-04-07] MEDS: Albuterol/Ipratropium 3.0-0.5 MG/3 ML Neb Soln NEB PRN (03:43)
[2022-04-07] MEDS: Gabapentin 100 MG Cap PO SCH ×3 (05:29→21:04)
[2022-04-07 06:51] LABS: CARBON DIOXIDE,CO2 23.2 mmol/L (21.0-32.0); POTASSIUM,K 3.5 mmol/L (3.5-5.1)
[2022-04-07] MEDS: Insulin Aspart 100 Units/ML 3 ML Pen SUBCUT SCH ×3 (08:18→18:22)
[2022-04-07] MEDS: Isosorbide Mononitrate 30 MG Tab.ER PO SCH (08:20)
[2022-04-07] MEDS: Furosemide 40 MG/4 ML VIAL IVPUSH SCH (08:21)
[2022-04-07] MEDS: amLODIPine 5 MG Tab PO SCH (08:21)
[2022-04-07] MEDS: Metoprolol Tartrate 50 MG Tab PO SCH ×2 (08:21→21:02)
[2022-04-07] MEDS: Clopidogrel 75 MG Tab PO SCH (08:22)
[2022-04-07] MEDS: Aspirin 81 MG Tab.EC PO SCH (08:22)
[2022-04-07] MEDS: Fluticasone NASAL Spray 16 GM Bottle NASBOTH SCH (08:32)
[2022-04-07] MEDS ORDERED: Furosemide 40 MG/4 ML VIAL IVPUSH ONE (15:03)
[2022-04-07] MEDS: Azithromycin 250 MG Tab PO SCH (16:01)
[2022-04-07] MEDS: Rosuvastatin 10 MG Tab PO SCH (21:00)
[2022-04-07] MEDS: Tamsulosin 0.4 MG Cap.ER PO SCH (21:01)
[2022-04-07] MEDS: rOPINIRole 1 MG Tab PO SCH (21:03)
[2022-04-07] MEDS: Pantoprazole 40 MG in Sodium Chloride 0.9% 10 ML IVPUSH SCH (21:05)
[2022-04-08] MEDS: Piperacillin/Tazobactam 2.25 GM in Sodium Chloride 0.9% 50 ML IV SCH ×3 (01:53→13:54)
[2022-04-08] MEDS: Gabapentin 100 MG Cap PO SCH ×2 (07:05→13:54)
[2022-04-08 07:38] LABS: CARBON DIOXIDE,CO2 24.2 mmol/L (21.0-32.0); POTASSIUM,K 3.4 mmol/L (3.5-5.1)
[2022-04-08] MEDS: Insulin Aspart 100 Units/ML 3 ML Pen SUBCUT SCH ×2 (08:56→11:51)
[2022-04-08] MEDS: Aspirin 81 MG Tab.EC PO SCH (08:57)
[2022-04-08] MEDS: Clopidogrel 75 MG Tab PO SCH (08:57)
[2022-04-08] MEDS: Fluticasone NASAL Spray 16 GM Bottle NASBOTH SCH (09:02)
[2022-04-08] MEDS: Isosorbide Mononitrate 30 MG Tab.ER PO SCH (09:05)
[2022-04-08] MEDS: Furosemide 40 MG/4 ML VIAL IVPUSH SCH (09:05)
[2022-04-08] MEDS: Metoprolol Tartrate 50 MG Tab PO SCH (09:05)
[2022-04-08] MEDS: amLODIPine 5 MG Tab PO SCH (09:05)
[2022-04-08 13:04] VITALS: BP 113/65; PULSE 72
== END 2022-04-08 16:55 | disposition home health service (06) | DRG 391 ==
LOC: MW.ED 18:48 → MW.MS 21:57
PROVIDERS: ADMIT Student in an Organized Health Care Education/Training Program; ATTEND Student in an Organized Health Care Education/Training Program
DX: K57.92 Diverticulitis of intestine, part unspecified, without perforation or abscess without bleeding (principal); J69.0 Pneumonitis due to inhalation of food and vomit; J96.01 Acute respiratory failure with hypoxia; N18.4 Chronic kidney disease, stage 4 (severe); N17.9 Acute kidney failure, unspecified; I25.10 Atherosclerotic heart disease of native coronary artery without angina pectoris; E11.22 Type 2 diabetes mellitus with diabetic chronic kidney disease; E78.5 Hyperlipidemia, unspecified; E78.00 Pure hypercholesterolemia, unspecified; G25.81 Restless legs syndrome; Z95.5 Presence of coronary angioplasty implant and graft; E86.0 Dehydration; I12.9 Hypertensive chronic kidney disease with stage 1 through stage 4 chronic kidney disease, or unspecified chronic kidney disease; Z79.4 Long term (current) use of insulin; I10 Essential (primary) hypertension; J45.909 Unspecified asthma, uncomplicated; Z79.1 Long term (current) use of non-steroidal anti-inflammatories (NSAID); Z79.52 Long term (current) use of systemic steroids; M19.90 Unspecified osteoarthritis, unspecified site; Z86.010 Personal history of colon polyps; Z87.81 Personal history of (healed) traumatic fracture; Z98.52 Vasectomy status; Z90.89 Acquired absence of other organs; Z98.890 Other specified postprocedural states; Z86.19 Personal history of other infectious and parasitic diseases; E11.9 Type 2 diabetes mellitus without complications; Z88.1 Allergy status to other antibiotic agents; Z88.8 Allergy status to other drugs, medicaments and biological substances; Z79.84 Long term (current) use of oral hypoglycemic drugs; Z79.02 Long term (current) use of antithrombotics/antiplatelets; Z79.82 Long term (current) use of aspirin; Z79.899 Other long term (current) drug therapy; Z20.822 Contact with and (suspected) exposure to COVID-19
CPT/HCPCS: 36415; 71045; 74176; 80053; 83605; 83690; 83735; 84484; 85025; 93005; 96361; 96375; 99285; J2270; J2405; J7030; U0002; 71046; 71046-26; 71250; 71250-26; 76705; 76705-26; 80048; 80202; 81001; 82947; 84100; 87040; 87077; 87154; 87186; 92610-GN; 93306; 94660; 96365; 97110-GP; 97116-GP; 97163-GP; 97530-GP; A9270-GY; C9113; J0744; J1644; J1815-GY; J1940; J1956; J2543; J3370; J3475; J3490; J7050; J7120; J7620-GY

== ENCOUNTER 2023-07-29 15:03 | Observation (INO) | payer MEDICARE, BC ==
[2023-07-29] MEDS ORDERED: Sodium Chloride 0.9% 2.5 ML Syringe FLUSH PRN (15:55)
[2023-07-29] MEDS ORDERED: Sodium Chloride 0.9% 10 ML Syringe FLUSH PRN (15:55)
[2023-07-29] MEDS ORDERED: Sodium Chloride 0.9% 1,000 ML IV ONE (15:59)
[2023-07-29 16:02] LABS: BASOPHILS ABSOLUTE AUTO 0.07 K/uL (0.00-0.20); BASOPHILS PERCENT AUTO 0.6 % (0.0-1.0); EOSINOPHILS ABSOLUTE AUTO 0.03 K/uL (0.00-0.45); EOSINOPHILS PERCENT AUTO 0.3 % (0.0-6.0); HEMATOCRIT 34.8 % (42.0-52.0); HEMOGLOBIN 12.4 g/dL (14.0-18.0); IMMATURE GRAN ABSOLUTE AUTO 0.12 K/uL (0.00-0.05); LYMPHOCYTES ABSOLUTE AUTO 1.43 K/uL (1.00-4.80); LYMPHOCYTES PERCENT AUTO 12.1 % (24.0-44.0); MEAN CORPUSCULAR HGB CONC 35.6 g/dL (32.0-36.0); MEAN CORPUSCULAR VOLUME 89.9 fL (83.0-99.0); MEAN PLATELET VOLUME 11.3 fL (9.4-12.4); MONOCYTES ABSOLUTE AUTO 1.12 K/uL (0.00-0.80); MONOCYTES PERCENT AUTO 9.5 % (0.0-8.0); NEUTROPHILS ABSOLUTE AUTO 9.08 K/uL (1.80-7.70); NEUTROPHILS PERCENT AUTO 76.5 % (41.0-71.0); PLATELET COUNT,PLT 150 K/uL (150-400); RED BLOOD CELL COUNT 3.87 M/uL (4.52-5.90); WHITE BLOOD CELL COUNT,WBC 11.85 K/uL (3.9-11.3)
[2023-07-29 16:04] LABS: BASE EXCESS VENOUS -0.5 (-2.0-3.0); PH,VENOUS 7.4 (7.31-7.41)
[2023-07-29] MEDS ORDERED: Albuterol/Ipratropium 3.0-0.5 MG/3 ML Neb Soln NEB ONE (16:08)
[2023-07-29] MEDS ORDERED: methylPREDNISolone Sodium Succinate 125 MG/2 ML SDV IVPUSH ONE (16:08)
[2023-07-29 16:16] LABS: A/G RATIO 0.7 (0.9-1.6); ALBUMIN 2.8 g/dL (3.4-5.0); BILIRUBIN TOTAL 0.8 mg/dL (0.2-1.0); CALCIUM 8.3 mg/dL (8.5-10.1); CARBON DIOXIDE,CO2 24.2 mmol/L (21.0-32.0); CREATININE 3.1 mg/dL (0.8-1.3); EST CRCL DRUG DOSING (CG) 16.29 mL/min; MAGNESIUM 1.8 mg/dL (1.8-2.4); PROTEIN TOTAL,TP 6.8 g/dL (6.4-8.2)
[2023-07-29 16:18] LABS: LACTIC ACID 1.6 mmol/L (0.4-2.0)
[2023-07-29] MEDS ORDERED: Furosemide 40 MG/4 ML VIAL IVPUSH ONE (16:18)
[2023-07-29 16:40] LABS: CORONAVIRUS COVID-19 NAA NEGATIVE (NEGATIVE); INFLUENZA A NAA NEGATIVE (NEGATIVE); INFLUENZA B NAA NEGATIVE (NEGATIVE); RESPIRATORY SYNCYTIAL VIR NAA NEGATIVE (NEGATIVE)
[2023-07-29] MEDS ORDERED: cefTRIAXone 1 GM in Sodium Chloride 0.9% 50 ML IV ONE (18:22)
[2023-07-29 20:38] LABS: BILIRUBIN,URINE NEGATIVE (NEGATIVE); COLOR,URINE YELLOW; GLUCOSE,URINE 100 mg/dL (NEGATIVE); KETONES,URINE NEGATIVE (NEGATIVE); LEUKOCYTE ESTERASE,URINE NEGATIVE (NEGATIVE); NITRITE,URINE NEGATIVE (NEGATIVE); OCCULT BLOOD,URINE TRACE-INTACT (NEGATIVE); PROTEIN,URINE 100 mg/dL (NEGATIVE); UROBILINOGEN,URINE 0.2 EU/dL (<2.0)
[2023-07-29 20:50] LABS: APPEARANCE,URINE HAZY
[2023-07-29 20:51] LABS: BACTERIA,URINE FEW (NEGATIVE); EPITHELIAL CELLS,URINE FEW (NONE-FEW); HYALINE CASTS,URINE 0-1 (0-2/LPF); MUCUS,URINE LIGHT (NONE-MOD); RBC,URINE 0-2 (0-2/HPF); WBC,URINE 0-2 (0-5/HPF)
[2023-07-29] MEDS ORDERED: 50% Dextrose in Water 50 ML Syringe IVPUSH PRN (23:49)
[2023-07-29] MEDS ORDERED: Glucagon,Human Recombinant 1 MG Vial IM PRN (23:49)
[2023-07-30] MEDS ORDERED: Azithromycin 500 MG Vial IV SCH
[2023-07-30] MEDS ORDERED: Azithromycin 500 MG in Sodium Chloride 0.9% 250 ML IV SCH ×2
[2023-07-30] MEDS ORDERED: Non-Formulary Medication 1 Each (Insulin Degludec [Tresiba] 100 UNIT/ML Vial) SUBCUT SCH (00:07)
[2023-07-30] MEDS ORDERED: Albuterol/Ipratropium 3.0-0.5 MG/3 ML Neb Soln NEB PRN (00:10)
[2023-07-30] MEDS ORDERED: Sodium Chloride 0.9% 0 ML ONE (00:31)
[2023-07-30 06:18] LABS: BASOPHILS ABSOLUTE AUTO 0.01 K/uL (0.00-0.20); BASOPHILS PERCENT AUTO 0.1 % (0.0-1.0); HEMATOCRIT 32.4 % (42.0-52.0); HEMOGLOBIN 11.5 g/dL (14.0-18.0); IMMATURE GRAN ABSOLUTE AUTO 0.04 K/uL (0.00-0.05); IMMATURE GRAN PERCENT AUTO 0.5 % (0.0-0.4); LYMPHOCYTES ABSOLUTE AUTO 0.56 K/uL (1.00-4.80); LYMPHOCYTES PERCENT AUTO 6.7 % (24.0-44.0); MEAN CORPUSCULAR HEMOGLOBIN 31.6 pg (28.0-32.0); MEAN CORPUSCULAR HGB CONC 35.5 g/dL (32.0-36.0); MEAN PLATELET VOLUME 11.3 fL (9.4-12.4); MONOCYTES ABSOLUTE AUTO 0.13 K/uL (0.00-0.80); MONOCYTES PERCENT AUTO 1.6 % (0.0-8.0); NEUTROPHILS ABSOLUTE AUTO 7.63 K/uL (1.80-7.70); NEUTROPHILS PERCENT AUTO 91.1 % (41.0-71.0); PLATELET COUNT,PLT 133 K/uL (150-400); RED BLOOD CELL COUNT 3.64 M/uL (4.52-5.90); WHITE BLOOD CELL COUNT,WBC 8.37 K/uL (3.9-11.3)
[2023-07-30 06:55] LABS: A/G RATIO 0.6 (0.9-1.6); ALBUMIN 2.4 g/dL (3.4-5.0); BILIRUBIN TOTAL 0.5 mg/dL (0.2-1.0); CALCIUM 8.2 mg/dL (8.5-10.1); CARBON DIOXIDE,CO2 23.4 mmol/L (21.0-32.0); CREATININE 3.1 mg/dL (0.8-1.3); EST CRCL DRUG DOSING (CG) 16.29 mL/min; POTASSIUM,K 3.9 mmol/L (3.5-5.1); PROTEIN TOTAL,TP 6.3 g/dL (6.4-8.2)
[2023-07-30] MEDS ORDERED: Omeprazole 20 MG Cap.CR PO SCH (07:30)
[2023-07-30] MEDS: Insulin Aspart 100 Units/ML 3 ML Pen SUBCUT SCH ×2 (07:54→12:15)
[2023-07-30] MEDS ORDERED: Metoprolol Tartrate 50 MG Tab PO SCH (09:00)
[2023-07-30] MEDS ORDERED: Isosorbide Mononitrate 30 MG Tab.ER PO SCH (09:00)
[2023-07-30 11:36] VITALS: BP 154/79; PULSE 66
[2023-07-31] MEDS ORDERED: cefTRIAXone 1 GM in Sodium Chloride 0.9% 50 ML IV SCH (18:00)
== END 2023-07-30 13:00 | disposition left against medical advice (07) ==
LOC: MW.ED 15:03 → MW.MS 18:25
PROVIDERS: ADMIT Internal Medicine; ATTEND Internal Medicine
DX: R53.1 Weakness (principal); R09.02 Hypoxemia; I13.0 Hypertensive heart and chronic kidney disease with heart failure and stage 1 through stage 4 chronic kidney disease, or unspecified chronic kidney disease; I50.9 Heart failure, unspecified; E11.22 Type 2 diabetes mellitus with diabetic chronic kidney disease; N18.4 Chronic kidney disease, stage 4 (severe); J44.9 Chronic obstructive pulmonary disease, unspecified; S06.5XAA Traumatic subdural hemorrhage with loss of consciousness status unknown, initial encounter; J18.9 Pneumonia, unspecified organism; E78.00 Pure hypercholesterolemia, unspecified; I25.10 Atherosclerotic heart disease of native coronary artery without angina pectoris; Z95.5 Presence of coronary angioplasty implant and graft; Z87.891 Personal history of nicotine dependence; Z20.822 Contact with and (suspected) exposure to COVID-19; Z79.82 Long term (current) use of aspirin; Z79.02 Long term (current) use of antithrombotics/antiplatelets; Z79.4 Long term (current) use of insulin; Z79.899 Other long term (current) drug therapy
CPT/HCPCS: 0241U; 36415; 70450; 71045; 80053; 81001; 82140; 82803; 82947; 83605; 83735; 83880; 84484; 85025; 93005; A9270; J0456; J0696; J1940; J2930; J3490; J7030; J7050; 93010; 99284; J7620-GY